=== PATIENT | female | born 1925 | race Caucasian/White ===

== ENCOUNTER 2016-03-31 12:42 | Inpatient (IN) | payer OTHER, MEDICARE ==
[~2016-03-31] VITALS: Ht 165.1 cm; Wt 76.4 kg
[~2016-03-31 12:42] MED LIST: AMARYL2 MG PO; ARICEPT5 MG PO; ASPIR 8181 MG PO; COZAAR 50MG TAB50 MG PO; DICLOFENAC SOD75 MG PO; JANUVIA 50MG50 MG PO; KEFLEX 250MG C250 MG PO; LOVASTATIN40 MG PO; MACRODANTIN 50M50 MG PO; MASON NATURAL2000 IU PO; METFORMIN500 MG PO; TYLENOL325 MG PO
[2016-03-31] MEDS ORDERED: LOSARTAN POTASS50 M1 PO (13:39)
[2016-03-31] MEDS ORDERED: JANUVIA50 M1 PO (13:39)
[2016-03-31] MEDS ORDERED: LOVASTATIN10 M1 PO (13:39)
[2016-03-31] MEDS ORDERED: METFORMIN HCL500 M3 PO (13:40)
[2016-03-31] MEDS ORDERED: DICLOFENAC SODI75 M2 PO (13:40)
[2016-03-31] MEDS ORDERED: GLIMEPIRIDE4 M1 PO (13:40)
[2016-03-31] MEDS ORDERED: TYLENOL EXTRA500 M2 PO (13:41)
[2016-03-31] MEDS ORDERED: ASPIRIN EC81 M1 PO (13:41)
[2016-03-31] MEDS ORDERED: VITAMIN D1000 UNIT PO (13:42)
--- NOTE | 2016-03-31 14:02 | ED AMS/SEIZURE/WEAK/DIZZY ---
History of Present Illness General Chief Complaint: Altered Mental Status Stated Complaint: BIBA AMS Source: patient, family Exam Limitations: clinical condition Allergies Coded Allergies: Penicillins (UNKNOWN PER PT DAUGHTER USUALLY SWELLS AND GETS HIVES TO MED ) Sulfa (Sulfonamide Antibiotics) (HIVES 03/31/16) atorvastatin (From LIPITOR) (UNKNOWN PER PT DAUGHTER 03/31/16) erythromycin base (HIVES, SWELLING 03/31/16) lisinopril (UNKNOWN PER PT DAUGHTER REPORTS PT ALWAYS SWELLS AND GET HIV ) morphine (VOMITING 03/31/16) Reconcile Medications Acetaminophen (Tylenol Extra Strength) 500 MG TABLET 1 TAB PO BID PAIN ( Reported) Aspirin (Ecotrin*) 81 MG TABLET.DR 1 TAB PO QAM HEART/BLOOD (Reported) Cholecalciferol (Vitamin D3) (Vitamin D) (Unknown Strength) TABLET (Unknown Dose) PO QAM SUPPLEMENT (Reported) Diclofenac Sodium 75 MG TABLET.DR 1 TAB PO BID PAIN/INFLAMMATION (Reported) Glimepiride 4 MG TABLET 1 TAB PO QAM DM (Reported) Losartan Potassium 50 MG TABLET 1 TAB PO QAM BP (Reported) Lovastatin 10 MG TABLET 1 TAB PO QPM CHOLESTEROL (Reported) Metformin HCl 500 MG TABLET 1 TAB PO BID DM (Reported) Sitagliptin Phosphate (Januvia) 50 MG TABLET 1 TAB PO QAM DM (Reported) Triage Note: 89 YEAR OLD FEMALE BIBA FROM HOME. PER FAMILY PT HAS INCREASE AMS OVER THE WEEKEND. FAMILY SUSPECTS UTI BUT HAS NOT BEEN ABLE TO OBTAIN A URINE SAMPLE DUE TO URINARY INCONTINENCE. FAMILY REPORTS HISTORY OF DIABETES AND DEMENTIA. PT ARRIVES TO ED ALERT AND RESPONSIVE TO VERBAL STIMULI. DENIES PAIN AT THIS TIME. Triage Nurses Notes Reviewed? yes HPI: This patient is an 89-year-old female with past medical history including aortic stenosis, hypertension, diabetes, dementia, and osteoarthritis who presented to the emergency department today brought in by ambulance accompanied by her daughter for evaluation of altered mental status. The patient's daughter reported that since Wednesday she has been acting, "off." She reported that the patient generally walks around with a walker, but has been, "limp," and has not been walking around. She has not been eating or drinking normally. He also reported that on Wednesday she did have some diarrhea with no blood in the stool that they noticed. They did report that this patient does get recurrent urinary tract infections with no signs or symptoms. They reported that her breathing seems to be heavier. The patient has not been complaining of any pain. When asked if she is having any pain, the patient says no. She is a poor historian at this time due to her dementia and current clinical state. (FLAVIO GUADARRAMA,ROBIN) Vital Signs & Intake/Output Vital Signs & Intake/Output Vital Signs Date Time Temp Pulse Resp B/P Pulse O2 O2 Flow FiO2 Ox Delivery Rate 04/01 1117 22 94 Room Air 04/01 1117 20 96 Nasal 2.0L Cannula 04/01 1111 Nasal 2.0L Cannula 04/01 0800 94 Nasal 2.0L Cannula 04/01 0800 98.2 75 20 124/58 98 Nasal 2.0L Cannula 04/01 0005 97.6 73 18 130/60 96 Nasal 2.0L Cannula 04/01 0000 Nasal 2.0L Cannula 03/31 2212 96 Nasal 2.0L Cannula 03/31 2150 97.1 81 18 130/68 96 Nasal 2.0L Cannula 03/31 2020 97.2 88 18 122/60 98 Nasal 2.0L Cannula 03/31 1735 96.5 85 16 118/58 98 Nasal 2.0L Cannula 03/31 1546 98.4 90 18 127/60 95 Nasal 2.0L Cannula ED Intake and Output 04/01 0000 03/31 1200 Intake Total 2000 Output Total 20 Balance 1980 Intake, IV 2000 Intake, Oral 0 Output, Urine 20 Patient 190 lb Weight Past History Travel History Traveled to [place] past 21 day No Medical History Any Pertinent Medical History? see below for history Neurological: dementia Cardiovascular: aortic stenosis, hypertension Musculoskeletal: osteoarthritis Endocrine: diabetes Surgical History Surgical History: non-contributory Psychosocial History What is your primary language Bulgarian Tobacco Use: Never used Family History Family History, If Any: Relation not specified for: No pertinent family history Hx Contributory? No (ROBIN MUNIZ PA-C) Review of Systems Review of Systems Constitutional: Reports: see HPI. EENTM: Reports: no symptoms. Respiratory: Reports: see HPI. Cardiovascular: Reports: no symptoms. GI: Reports: see HPI. Genitourinary: Reports: no symptoms. Musculoskeletal: Denies: no symptoms, see HPI, back pain, gout, joint pain, joint swelling, muscle pain, muscle stiffness, neck pain. Skin: Reports: no symptoms. Neurological/Psychological: Reports: no symptoms. (FLAVIO GUADARRAMA,ROBIN) Physical Exam Physical Exam General Appearance: well developed/nourished, no apparent distress, alert, awake Comments: Well-developed well-nourished person in no acute distress HEENT: head normocephalic, dry mucous membranes PERRLA bilaterally Nose is atraumatic. Pharynx normal. No swelling or edema. Neck: Supple, no lymphadenopathy Back: Normal inspection Cardiovascular: Regular rate and rhythm with no murmurs, rubs, or gallops Respiratory: No respiratory distress. Breath sounds clear to auscultation bilaterally with no wheezes, rales, rhonchi Abdomen: Soft and nondistended. Tenderness to palpation diffusely across the abdomen. No rebound or guarding. No masses or organomegaly appreciated. Hyperactive bowel sounds Extremity: No edema, normal and equal pulses. Neuro: Alert oriented to person, cranial nerves II through XII grossly intact. No facial droop. No aphasia Skin: No appreciable rash on exposed skin, skin is warm and dry. Psych: Mood and affect is normal Core Measures ACS in differential dx? Yes CVA/TIA Diagnosis: No Severe Sepsis Present: No Septic Shock Present: No (FLAVIO GUADARRAMA,ROBIN) Progress Differential Diagnosis: arrythmia, anemia, benign positional vertigo, CVA/stroke , dehydration, encephalitis, electrolyte imbalance, GI bleed, hypoglycemia, intracranial Hem., intracranial mass/tumor, pneumonia, sepsis, seizure disorder, subarachnoid Hem., UTI/pyelo, COLITIS, MESENTERIC ISCHEMIA, copd, chf, pe, acs Diagnostic Imaging: Viewed by Me: Radiology Read, CT Scan. Discussed w/RAD: Radiology Read, CT Scan. Radiology Impression: PATIENT: EDITH REILLY PRESENT AGE: 89 PATIENT ACCOUNT NO: [id number] : [birth year] LOCATION: [facility] ORDERING PHYSICIAN: ROBIN MUNIZ PA-C SERVICE DATE: 03/31/16 EXAM TYPE: CAT - CT ABD & PELVIS W/O IV CONTRAS EXAMINATION: CT ABDOMEN AND PELVIS WITHOUT CONTRAST CLINICAL INFORMATION: Abdominal pain, altered mental status COMPARISON: None TECHNIQUE: Multidetector volumetric imaging was performed from the superior aspect of the liver through the pubic symphysis. Sagittal and coronal reformatted images were obtained on the technologist's workstation. Noncontrast examination was performed due to patient's renal function DLP: 674.91 mGy-cm FINDINGS: LUNG BASES: Mild dependent bibasilar opacities favor atelectasis. LIVER, GALLBLADDER, AND BILIARY TREE: The liver is normal in size, shape, and attenuation. No focal hepatic lesion or biliary ductal dilatation is present. The gallbladder is unremarkable with no evidence of radiopaque gallstones, gallbladder wall thickening, or obvious pericholecystic inflammatory changes. PANCREAS: Unremarkable. SPLEEN: Unremarkable. ADRENAL GLANDS: Unremarkable. KIDNEYS AND URETERS: Assessment of the renal parenchyma is limited in the absence of intravenous contrast. However, there is a segment of the lateral left renal cortex which appears thickened, as seen on coronal image 48, and for which an underlying mass cannot be excluded. There is suggestion of a focal low-attenuation density in this area (axial image 31/91), also not adequately assessed in the absence of intravenous contrast. No hydronephrosis or obstructing calculi bilaterally. BLADDER: Minimally distended and grossly unremarkable. GASTROINTESTINAL TRACT: There is mild sigmoid colon diverticulosis without suspicious findings for diverticulitis. No abnormal bowel wall thickening is seen. No evidence of bowel obstruction. No free fluid or free air is seen. ABDOMINAL WALL: No significant hernia is appreciated. LYMPH NODES: Scattered mesenteric and retroperitoneal subcentimeter lymph nodes are present, without significant enlargement by size criteria. VASCULAR: There is atherosclerotic calcification along the aorta and iliac arteries. PELVIC VISCERA : Patient appears status post hysterectomy. OSSEOUS STRUCTURES: Degenerative changes are noted in the spine. IMPRESSION: 1. Mild colonic diverticulosis without evidence for diverticulitis. No findings to suggest colitis. No evidence of bowel obstruction. 2. Segment of thickened left renal cortex, suboptimally evaluated in the absence of intravenous contrast. An underlying mass in this region cannot be excluded. If patient's renal function improves, a contrast- enhanced CT would be helpful to further evaluate this finding. DICTATED BY: DINORAH ORTIZ MD DATE/TIME DICTATED:03/31/161638 WALLPAPER HANGER:SALO DATE/TIME TRANSCRIBED:03/31/161638 CONFIDENTIAL, DO NOT COPY WITHOUT APPROPRIATE AUTHORIZATION. <Electronically signed in Other Vendor System> SIGNED BY: DINORAH ORTIZ MD 03/31/16 0638 CXR Impression: PATIENT: EDITH REILLY PRESENT AGE: 89 PATIENT ACCOUNT NO: [id number] : [birth year] LOCATION: [facility] ORDERING PHYSICIAN: ROBIN MUNIZ PA-C SERVICE DATE: 03/31/16-1316 EXAM TYPE: RAD - XRY-PORTABLE CHEST XRAY EXAMINATION: XR PORTABLE CHEST CLINICAL INFORMATION: Altered mental status. COMPARISON: Chest x-ray 03/28/2008. TECHNIQUE: Portable AP view of the chest was obtained. FINDINGS: The lungs are hypoinflated but otherwise clear without focal airspace consolidation. No pleural effusions or pneumothoraces are identified. Cardiomediastinal contours are stable. Soft tissues are unremarkable. No acute osseous abnormality is identified. There are [id number] degenerative changes involving the bilateral glenohumeral joints. An anchor screw is visualized along the right humeral head. IMPRESSION: No acute pulmonary process. DICTATED BY: JUAN PABLO OLIVAREZ MD DATE/TIME DICTATED:03/31/161407 WALLPAPER HANGER:SALO DATE/TIME TRANSCRIBED:03/31/161407 CONFIDENTIAL, DO NOT COPY WITHOUT APPROPRIATE AUTHORIZATION. <Electronically signed in Other Vendor System> SIGNED BY: JUAN PABLO OLIVAREZ MD 03/31/161417 Initial ED EK BPM, SINUS TACHYCARDIA Comments: 03/31/2016 3:16:59 PM: As of the patient's bedside for reevaluation. She is currently resting comfortably. Updated the patient's daughter on the results. UTI based on urinalysis. White blood cell count 28.8. Will also obtain a CT scan of the abdomen and pelvis. (FLAVIO GUADARRAMA,ROBIN) Plan of Care: Orders Procedure Date/time Status MAGNESIUM 04/02 06 Active CBC WITHOUT DIFFERENTIAL 04/02 06 Active BASIC ELECTROLYTES PLUS BUN&CR 04/02 06 Active Regular Diet 04/01 B Active RT: Evaluation 04/01 1111 Active Skin/Pressure Ulcer Assess (Sk 04/01 0730 Active Pain Treatment and Response 04/01 07 Active CBC WITHOUT DIFFERENTIAL 04/01 07 Complete BASIC ELECTROLYTES PLUS BUN&CR 04/01 0600 Complete Change service to 04/01 0538 Active TRC EVALUATION (GEN) 04/01 UNK Complete THERAPIST ORDERS 04/01 UNK Complete OXYGEN SETUP (GEN) 04/01 UNK Complete NUTRITIONAL CONSULT 04/01 UNK Active Turn and Reposition 03/31 2223 Active Skin Integrity Protocol 03/31 2223 Active Straight Cath 03/31 2221 Complete MISSING MEDICATION FORM 03/31 2209 Active Teach/Educate 03/31 2149 Active Nutritional Intake, Monitor 03/31 2149 Active Isolation 03/31 2149 Active Patient Care Conference 03/31 2149 Active Pathway - chart 03/31 1912 Active Pathway - chart 03/31 1911 Active House Staff 03/31 191 Active Patient Data 03/31 191 Active Code Status 03/31 191 Active Patient Data 03/31 1728 Active Saline Lock 03/31 1714 Active Admit to inpatient 03/31 1714 Active Vital Signs 03/31 171 Active Activity/Ambulation 03/31 171 Active Code Status 03/31 1714 Complete Weight 03/31 1647 Active Intake & Output 03/31 1428 Active TOTAL IRON BINDING CAPACITY 03/31 1407 Complete FERRITIN 03/31 1407 Complete SERUM IRON 03/31 1407 Complete Lab Add-on Test 03/31 UNK Active VTE Mechanical Prophylaxis 03/31 UNK Active FingerStick- Glucose 03/31 UNK Active Current Medications Sig/Bianca Start time Last Medication Dose Stop Time Status Admin Ceftazidime 1,000 MG Q12 04/01 1459 UNVr (Fortaz) Non-Formulary 0 SEE ADMIN CRITERIA 03/31 2030 CAN Medication (NON FORMULARY) Ceftriaxone Sodium 1,000 MG ONCE ONE 03/31 1530 CAN (Rocephin) 03/31 1531 Laboratory Tests 04/01/16 0730: CBC w Diff NO MAN DIFF REQ, RBC 3.70 L, MCV 78.5 L, MCH 25.5 L, RDW 21.0 H, MPV 8.5, Gran % 83.5 H, Lymphocytes % 10.2 L, Monocytes % 5.8, Eosinophils % 0.5, Basophils % 0 L, Absolute Granulocytes 18.0 H, Absolute Lymphocytes 2.2, Absolute Monocytes 1.3 H, Absolute Eosinophils 0.1, Absolute Basophils 0, PUBS MCHC 32.4 L 04/01/16 0700: Anion Gap 11, Estimated GFR 27 L, BUN/Creatinine Ratio 30.6 H Microbiology 03/31 1540 BLOOD: Blood Culture - RES Initial ED EKG: normal axis, normal intervals, normal p-waves, normal QRS complex, normal sinus rhythm (NORBERTO BURRIS MD) Departure Departure Condition: Stable Clinical Impression Primary Impression: UTI (urinary tract infection) Qualifiers: Urinary tract infection type: site unspecified Hematuria presence: without hematuria Qualified Code: N39.0 - Urinary tract infection, site not specified Secondary Impressions: Hypoxia Leukocytosis Qualifiers: Leukocytosis type: unspecified Qualified Code: D72.829 - Elevated white blood cell count, unspecified Referrals: ALEKSANDAR DAUGHERTY,JONATHAN Jara (PCP/Family) Departure Forms: Customer Survey General Discharge Information Admission Note Spoke With: HEIDI MERCER MD Documentation of Exam: Documentation of any treatments & extenuating circumstances including Concerns Regarding Discharge (functional status, medication knowledge or non-compliance, living conditions, etc.) that warrant an admission rather than observation: [ This patient is an 89 year old female with a past medical history including diabetes and recurrent UTIs who presented for evaluation of altered mental status. UTI based on urinalysis. WBC count 28. Hypoxic on room air at 88%. Should be admitted for IV antibiotics, trend labs, oxygen therapy, possible CT scan with IV contrast, possible pulmonology consult, PT evaluation, and close monitoring. Premature discharge could prove medically harmful.] (ROBIN MUNIZ PA-C) Departure Disposition: HOME OR SELF CARE PA/ELECTRIC TRUCK CRANE OPERATOR Co-Sign Statement Statement: ED Attending supervision documentation- x I saw and evaluated the patient. I have also reviewed all the pertinent lab results and diagnostic results. I agree with the findings and the plan of care as documented in the PA's/ELECTRIC TRUCK CRANE OPERATOR's documentation. [] I have reviewed the ED Record and agree with the PA's/ELECTRIC TRUCK CRANE OPERATOR's documentation. [] Additions or exceptions (if any) to the PAs/ELECTRIC TRUCK CRANE OPERATOR's note and plan are summarized below: [] (NORBERTO BURRIS MD)
[2016-03-31 14:17] LABS: ABSOLUTE BASOPHIL COUNT 0 /CUMM (0.0-0.2); ABSOLUTE EOSINOPHIL COUNT 0 /CUMM (0.0-0.7); ABSOLUTE GRANULOCYTE CT 24.5 /CUMM (1.4-6.5); ABSOLUTE LYMPH COUNT 2.2 /CUMM (1.2-3.4); ABSOLUTE MONOCYTE COUNT 1.4 /CUMM (0.10-0.60); BASOPHIL % 0 % (0.0-2.0); EOSINOPHIL % 0 % (0-5); HEMATOCRIT 31.8 % (37-47); MEAN CORPUSCULAR HGB 25.2 PG (27.0-31.0); MEAN CORPUSCULAR HGB CONC 32.5 G/DL (33.0-37.0); MEAN CORPUSCULAR VOLUME 77.4 FL (81.0-99.0); MEAN PLATELET VOLUME 8.1 FL (7.4-10.4); PLATELET COUNT 318 /CUMM (130-400); RBC DISTRIBUTION WIDTH 20.5 % (11.5-14.5); RED BLOOD CELL CT 4.11 /CUMM (4.20-5.40); WHITE BLOOD CELL COUNT 28.2 /CUMM (4.8-10.8)
--- NOTE | 2016-03-31 14:18 | RADIOLOGY REPORT ---
EXAMINATION: XR PORTABLE CHEST CLINICAL INFORMATION: Altered mental status. COMPARISON: Chest x-ray 03/28/2008. TECHNIQUE: Portable AP view of the chest was obtained. FINDINGS: The lungs are hypoinflated but otherwise clear without focal airspace consolidation. No pleural effusions or pneumothoraces are identified. Cardiomediastinal contours are stable. Soft tissues are unremarkable. No acute osseous abnormality is identified. There are [id number] degenerative changes involving the bilateral glenohumeral joints. An anchor screw is visualized along the right humeral head. IMPRESSION: No acute pulmonary process.
--- NOTE | 2016-03-31 16:54 | CT SCAN REPORT ---
EXAMINATION: CT ABDOMEN AND PELVIS WITHOUT CONTRAST CLINICAL INFORMATION: Abdominal pain, altered mental status COMPARISON: None TECHNIQUE: Multidetector volumetric imaging was performed from the superior aspect of the liver through the pubic symphysis. Sagittal and coronal reformatted images were obtained on the technologist's workstation. Noncontrast examination was performed due to patient's renal function DLP: 674.91 mGy-cm FINDINGS: LUNG BASES: Mild dependent bibasilar opacities favor atelectasis. LIVER, GALLBLADDER, AND BILIARY TREE: The liver is normal in size, shape, and attenuation. No focal hepatic lesion or biliary ductal dilatation is present. The gallbladder is unremarkable with no evidence of radiopaque gallstones, gallbladder wall thickening, or obvious pericholecystic inflammatory changes. PANCREAS: Unremarkable. SPLEEN: Unremarkable. ADRENAL GLANDS: Unremarkable. KIDNEYS AND URETERS: Assessment of the renal parenchyma is limited in the absence of intravenous contrast. However, there is a segment of the lateral left renal cortex which appears thickened, as seen on coronal image 48, and for which an underlying mass cannot be excluded. There is suggestion of a focal low-attenuation density in this area (axial image 31/91), also not adequately assessed in the absence of intravenous contrast. No hydronephrosis or obstructing calculi bilaterally. BLADDER: Minimally distended and grossly unremarkable. GASTROINTESTINAL TRACT: There is mild sigmoid colon diverticulosis without suspicious findings for diverticulitis. No abnormal bowel wall thickening is seen. No evidence of bowel obstruction. No free fluid or free air is seen. ABDOMINAL WALL: No significant hernia is appreciated. LYMPH NODES: Scattered mesenteric and retroperitoneal subcentimeter lymph nodes are present, without significant enlargement by size criteria. VASCULAR: There is atherosclerotic calcification along the aorta and iliac arteries. PELVIC VISCERA: Patient appears status post hysterectomy. OSSEOUS STRUCTURES: Degenerative changes are noted in the spine. IMPRESSION: 1. Mild colonic diverticulosis without evidence for diverticulitis. No findings to suggest colitis. No evidence of bowel obstruction. 2. Segment of thickened left renal cortex, suboptimally evaluated in the absence of intravenous contrast. An underlying mass in this region cannot be excluded. If patient's renal function improves, a contrast-enhanced CT would be helpful to further evaluate this finding.
--- NOTE | 2016-03-31 17:29 | History & Physical ---
See Addendum ASHLYN DAUGHERTY,JOSEPHINE 03/31/16 9175: General Information and HPI MD Statement: I have seen and personally examined EDITH CRANE and documented this H& P. The patient is a 89 year old F who presented with a patient stated chief complaint of [altered mental status]. Source of Information: family Exam Limitations: dementia History of Present Illness: Patient is an 89-year-old lady with PMH of dementia, recurrent UTIs, aortic stenosis, DM, HTN, HLD who is BIBA due to worsening weakness and altered mental status for about 4-5 days. According to her daughter patient has becoming gradually weaker and less communicative since about 2-3 weeks ago, she has also been incontinent with the urine. Patient had similar symptoms in the past when she had a UTI, except that she would usually complain of burning which she has not been complaining of this time. She has overall having urinary incontinence more frequently since her last episode of UTI in January 2016, for which she received a 7 day course of ciprofloxacin. Patient sees Dr. Huertas (her PCP), and last saw him in December 2015. Patient has been receiving treatment with ciprofloxacin for the recurrent UTIs. Family reports no fever or chills. No abdominal pain or coughing. Yesterday she also had an episode of bowel incontinence and passed out a large volume of brown stool. Patient's older daughter is a nurse and she confirmed that the stool did not appear dark or bloody. Denies any abdominal distention, reports one episode of vomiting undigested food 2 days ago. Family also report that her breathing appears more labored recently especially when she becomes anxious. Deny poor appetite but report overall weight loss during the past 1.5 years. She has a 24 hour aid at home and she is normally walking with a walker and able to feed herself; however during the past 4-5 days she has been too week to ambulate and has been more dependent. Family also have noticed a swelling on the right leg sine yesterday, patient has not reported any pain on the leg except for the chronic pain on the knees bilaterally (left>right). Also reported elevated BS to 260s in the past few days, her normal BS being at 120s. Of note, about three weeks ago patient had her left toe nail removed as it was falling off, family denies any discharge, irritation in the area or any pain reported by the patient. 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 ) morphine (VOMITING 03/31/16) Home Med list Acetaminophen (Tylenol Extra Strength) 500 MG TABLET 1 TAB PO BID PAIN ( Reported) Aspirin (Ecotrin*) 81 MG TABLET.DR 1 TAB PO QAM HEART/BLOOD (Reported) Cholecalciferol (Vitamin D3) (Vitamin D) (Unknown Strength) TABLET (Unknown Dose) PO QAM SUPPLEMENT (Reported) Diclofenac Sodium 75 MG TABLET.DR 1 TAB PO BID PAIN/INFLAMMATION (Reported) Glimepiride 4 MG TABLET 1 TAB PO QAM DM (Reported) Losartan Potassium 50 MG TABLET 1 TAB PO QAM BP (Reported) Lovastatin 10 MG TABLET 1 TAB PO QPM CHOLESTEROL (Reported) Metformin HCl 500 MG TABLET 1 TAB PO BID DM (Reported) Sitagliptin Phosphate (Januvia) 50 MG TABLET 1 TAB PO QAM DM (Reported) Past History Travel History Traveled to [place] past 21 day No Medical History Neurological: dementia Cardiovascular: aortic stenosis, hypertension Renal: recurrent UTIs Musculoskeletal: osteoarthritis Endocrine: diabetes Surgical History Surgical History: non-contributory Past Family/Social History Family History Relations & Conditions if any Relation not specified for: No pertinent family history Functional Ability ADLs Independent: eating. Needs Assist: dressing, toileting, bathing. Ambulation: walker IADLs Needs Assist: shopping, housework, finances, food prep, telephone, transportation, medication admin. Review of Systems Review of Systems Constitutional: Reports: malaise, weakness. Denies: chills, fever. EENTM: Reports: no symptoms. Cardiovascular: Denies: chest pain, palpitations, peripheral edema, syncope. Respiratory: Reports: short of breath. Denies: cough, sputum production, stridor, wheezing. GI: Reports: vomiting. Denies: abdominal pain, bloating, diarrhea, melena, nausea, bloody stool, changes in stool. Genitourinary: Reports: urgency. Denies: discharge, dysuria, frequency, pain. Musculoskeletal: Reports: no symptoms. Skin: Reports: no symptoms. Neurological/Psychological: Reports: depressed, weakness (generalized). Hematologic/Endocrine: Reports: no symptoms. Exam & Diagnostic Data Last 24 Hrs of Vital Signs/I&O Vital Signs Date Time Temp Pulse Resp B/P Pulse O2 O2 Flow FiO2 Ox Delivery Rate 03/31 2020 97.2 88 18 122/60 98 Nasal 2.0L Cannula 03/31 1735 96.5 85 16 118/58 98 Nasal 2.0L Cannula 03/31 1546 98.4 90 18 127/60 95 Nasal 2.0L Cannula 03/31 1428 100.0 92 18 132/60 88 Room Air Room Air 03/31 1321 95 Nasal 2.0L Cannula 03/31 1313 100.1 97 18 156/58 97 Nasal 2.0L Cannula Intake & Output 03/31 1600 03/31 0800 03/31 0000 Intake Total Output Total 20 Balance -20 Output, Urine 20 Physical Exam General Appearance Alert, Cooperative, No Acute Distress, not oriented to time and place but oriented to person. Skin No Rashes, No Breakdown, No Significant Lesion, left big toenail is removed , there is mild erythema on the bed of the nail but no tenderness or discharge noted. HEENT Atraumatic, EOMI, Mucous Membr. moist/pink Neck Supple, No JVD Lymphatic no cervical or submandibular LAP Cardiovascular Regular Rate, Normal S1, Normal S2, 3/6 systolic murmur at heard best at the aortic area Lungs Clear to Auscultation, Normal Air Movement Abdomen Soft, increased bowel sounds, mild suprapubuc tenderness, mild RUQ tenderness, no CVA tenderness bilaterally Neurological Strength at 5/5 X4 Ext, Normal Tone, Sensation Intact, Cranial Nerves 3-12 NL Extremities Normal Pulses, left shoulder decreased ROM (frozen shoulder), forces intact 5/5, there is swelling and crepitaiton on the knees on both sides (right >left). there is swelling of the right lower extremity compared to the left, 1+ pitting pedal edema on both sides Vascular Normal Pulses, Pulses Symmetrical Last 24 Hrs of Labs/Rehan: Laboratory Tests 03/31/16 1423: Urinalysis LIGHT H, Urine Color YEL, Urine Clarity HAZY H, Urine pH 5.5, Ur Specific [place] 1.025, Urine Protein 100 H, Urine Ketones NEG, Urine Nitrite NEG, Urine Bilirubin NEG, Urine Urobilinogen 0.2, Ur Leukocyte Esterase LARGE H , Ur Microscopic SEDIMENT EXAMINED, Urine RBC 10-15 H, Urine WBC PACKD H, Ur Epithelial Cells MANY H, Urine Hemoglobin LARGE H, Urine Glucose NEG 03/31/16 1407: Anion Gap 14, Estimated GFR 30 L, BUN/Creatinine Ratio 30.0 H, Glucose 194 H, Lactic Acid 1.3, Calcium 9.3, Total Bilirubin 0.7, AST 15, ALT 29, Alkaline Phosphatase 90, Troponin I 0.02, Total Protein 6.6, Albumin 3.2 L, Globulin 3.4 , Albumin/Globulin Ratio 0.9 L, CBC w Diff MAN DIFF ORDERED, RBC 4.11 L, MCV 77.4 L, MCH 25.2 L, RDW 20.5 H, MPV 8.1, Gran % 87.0 H, Lymphocytes % 7.9 L , Monocytes % 5.1, Eosinophils % 0, Basophils % 0 L, Absolute Granulocytes 24.5 H, Segmented Neutrophils 85 H, Band Neutrophils 8 H, Absolute Lymphocytes 2.2 , Lymphocytes 6 L, Monocytes 1 L, Absolute Monocytes 1.4 H, Absolute Eosinophils 0, Absolute Basophils 0, Platelet Estimate ADEQUATE, Hypochromic- Microcytic 1+, Anisocytosis 1+, Microcytic Cells 1+, PUBS MCHC 32.5 L Microbiology 03/31 1540 BLOOD: Blood Culture - RECD 03/31 1521 BLOOD: Blood Culture - RECD 03/31 1423 URINE ROUT: Urine Culture - RECD Assessment/Plan Assessment: Patient is an 89-year-old lady with PMH of dementia, recurrent UTIs, aortic stenosis, DM, HTN, HLD who is BIBA due to worsening weakness and altered mental status for about 4-5 days. In the ED patient was found to have T 0f 100.0, NC:92 , desaturating to 88% in RA (95% on 2L). She is alert and awake not oriented, does not appear in respiratory distress or febrile. UA suggests UTI, CXR appear normal. she received IV hydration and a dose of gentamicin in the ED. Patient is admitted to the [facility] floor with sepsis of possible urologic origin. Problem list and plan: UTI and altered mental status Patient completes SIRS criteria (low grade fever and leukocytosis, mild tachycardia). Patient has a history of recurrent UTIs, last time was treated outpatient with a 7 day course of Ciprofloxacin in . Patient was also admitted to [facility] in June 2013 for UTI and cultures grew pseudomonas a., proteus m., and enterococcus. UA on this admission shows high LE, large Hb, packed WBCs, high RBCs. T max 100.1 * sent UC and BC * IV fluids, NS 75 cc/hour * IV abx: considering penicillin allergy, we are giving ceftazidime and vancomycin to cover possible pseudomonas, proteus and enterococcus. Gentamicin DC'd due to JULIETA. Hypoxia on admission saturation was found to be 88 % in RA in the ED upon arrival, came up >92% on 2L. family denied coughing or sputum production. Lung exam is clear. * TRC nebs * taper down O2 supplementation as tolerated JULIETA according to the family Cr goes up above 2.0 at times especially with UTIs. today 1.6, slightly elevated from baseline. should be possibly due to infection and dehydration. * IV hydration * repeat bep in am Right leg swelling rule out DVT, no change in color, pulses symmetric * doppler US of the right lower leg Diabetes mellitus type 2 hold oral medications * accuchecks TID AC * insulin NSS HTN * continue losartan 50 mg daily Microcytic anemia possibly due to iron deficiency * iron studies * CBC in AM Episode of vomiting and diarrhea * stool exam and culture * CT abdomen and pelvis Chronic knee osteoarthritis and pain * continue pain medications * Tylenol for mild pain, diclofenac for mod-severe pain Diet * diabetic DVT px * SC heparin DNR/DNI As Ranked By This Provider Problem List: 1. Leukocytosis Qualifiers Leukocytosis type: unspecified Qualified Code: D72.829 - Elevated white blood cell count, unspecified 2. Hypertension 3. Diabetes 4. JULIETA (acute kidney injury) 5. Altered mental state 6. UTI (urinary tract infection) Qualifiers Urinary tract infection type: site unspecified Hematuria presence: without hematuria Qualified Code: N39.0 - Urinary tract infection, site not specified Core Measures/Miscellaneous Acute Coronary Syndrome ACS Diagnosis: No Cerebrovascular Accident CVA/TIA Diagnosis: No Congestive Heart Failure CHF Diagnosis: No Venous Thromboembolism VTE Risk Factors: Acute medical illness, Age > 40, Obesity VTE Prophylaxis Ordered Inpt: [facility] d/t: No contraindications No VTE Pharm Prophylaxis d/t: No contraindications VTE Diagnosis: No VTE Type: NONE VTE Confirmed by (Test): NONE Severe Sepsis Severe Sepsis Present: No Septic Shock Septic Shock Present: No Miscellaneous Documentation Attending Case Discussed With: HEIDI MERCER MD Primary Care Physician: JONATHAN HUERTAS MD Patient sees these Specialists Dr. Huertas Level of Patient Care: General Medicine SERAFIN RICE 03/31/162053: Resident Review Statement Resident Statement: examined this patient, discussed with corporate communications intern, agreed with corporate communications intern, discussed with family, reviewed EMR data (avail), discussed with nursing , reviewed images Other Findings: Ms Crane is an 89-year-old lady with a PMH of HTN, GERD, DM, PVD, HLD, dementia and OA was brought in by family members out of concern for urinary tract infection. She follows up with her PCP (Dr. Huertas) for her history of recurrent UTIs and does have a standing order of ciprofloxacin, last UTI in January 2016. Symptoms started this past weekend with noticeable decrease in conversation and ambulation, generalized weakness and confusion. The report 1 episode of nonbloody emesis and diarrhea over the weekend but denies any noticeable fevers or chills. This morning she was noted to have increased effort with respiration for which they brought her in to the ED. At her baseline she is independent with feeding but does require 24-hour help with ADLs. The visiting nurse also noted an increase in her blood sugar today. VS on admission: BP 156/58, HR 97, RR 18, SPO2 97% on 2L, T1 100.1 PE: Alert, no acute distress, baseline hearing impairment. No evidence of focal neurologic deficits. RRR, normal S1/S2, rate 3/6 systolic murmur present in all cardiac vo. Diminished breath sounds in the basilar regions bilaterally. Hyperactive bowel sounds, mild discomfort elicited with palpation of the suprapubic region. Right lower extremity slightly larger with no evidence of hematoma or bruising. Pertinent labs: WBC 28.2, 8% bands, H&H 10.4/31.8, platelets 318, BUN/CR 48/1.6, glucose 194 Lactic acid: 1.3 UA: Large leukocyte esterase, packed WBCs CXR: No acute pelvic process Venous Doppler right lower extremity: Normal triplex scan without evidence of DVT involving right lower extremity CT abdomen and pelvis: Mild diverticulosis, no diverticulitis, no findings to suggest colitis. Segment of thickened left renal cortex, suboptimally evaluated in the absence of IV contrast. An underlying mass in this region cannot be excluded Problem list: 1. UTI 2. SIRS criteria/pyelonephritis 3. Acute kidney injury 4. Anemia 5. Diabetes 6. Hypertension Plan: * Admit to general medicine * Previous urine cultures: Enterococcus, Pseudomonas and Proteus. Patient does have a history of penicillin allergy. She did receive 1 dose of gentamicin in the ER. In the setting of acute kidney injury, we'll start her on 1 dose of vancomycin and ceftaz. Patient has received cephalosporins in the past with no reaction. Follow-up urine and blood cultures * SIRS criteria: WBC 20.2, HR 77, T 100.4. Follow-up cultures * Acute kidney injury: Baseline creatinine 1.1 proximally 3 years ago. We'll continue with moderate hydration with NS at 75 mL an hour. Repeat BEP in the morning. Monitor for chronic congestion * Anemia: We'll follow-up iron studies in the a.m. and if low start her on ferrous sulfate supplementation * Diabetes: Holding home doses of metformin, Januvia and Glimepiride. We'll start her on low-dose sliding scale, Accu-Cheks * Hypertension: Continue losartan 50 mg daily * Diet: Regular * DVT prophylaxis: Heparin 5000 units subcutaneous * Status: DNR/DNI CT abd/pelvis findings: will follow up radiology in the AM
--- NOTE | 2016-03-31 20:03 | ULTRASOUND REPORT ---
EXAMINATION: US TRIPLEX LOWER EXTREMITY, RIGHT CLINICAL INFORMATION: Decreased mobility recently. COMPARISON: None available. TECHNIQUE: Color-flow triplex imaging with spectral analysis and compression Doppler were performed on the right lower extremity. FINDINGS: Respiratory variation, normal compression and augmented flow are noted throughout the lower extremity. The visualized common femoral vein, superficial femoral vein, profunda femoral vein, popliteal vein and midcalf peroneal and posterior tibial venous segments show no evidence of deep venous thrombosis. There is no Lucas's cyst. IMPRESSION: Normal triplex scan without evidence of deep venous thrombosis involving the right lower extremity.
--- NOTE | 2016-03-31 21:08 | Admission Certification ---
Admission Certification Certification Statement - As attending physician, I certify that at the time of - admission, based on clinical presentation, severity of - symptoms, need for further diagnostic testing and - therapeutic interventions, and risk of adverse outcomes - without in-hospital treatment, in my clinical assessment, - this patient requires an acute hospital stay for a minimum - of two nights or longer. I have also considered psychsocial - factors such as support system, advanced age, financial - issues, cognitive issues, and failed out-patient treatments, - past re-admission history, safety of patient, and lack of - compliance as applicable. Specific rationale supporting this admission is: Sepsis secondary to UTI with hypoxia and confusion
--- NOTE | 2016-03-31 21:08 | PN- Att Addend ---
Attending Addendum Attending Brief Note 89F PMH dementia, HTN, T2DM, aortic stenosis, recurrent UTI presenting with altered mental status, poor oral intake in the setting of UTI. Patient has been interacting/talking less with family of late and eating less. Presentations similar to prior UTIs. Not short of breath but hypoxic to 88% on room air. Appears ill and weak, but not toxic. Febrile 100.1, normal BP, WBC 28k, creatinine 1.6 (baseline 1.1). Has a history of UTI with Enterococcus, Pseudomonas, Proteus. Current Medications Sig/Bianca Start time Last Medication Dose Route Stop Time Status Admin Acetaminophen 1,000 MG Q6P PRN 03/31 1914 DC IV Aspirin Buffered 81 MG QAM 04/01 1000 AC PO Ceftazidime 1,000 MG ONCE ONE 03/31 1914 DC 03/31 IV 03/31 Ceftriaxone Sodium 1,000 MG ONCE ONE 03/31 1530 CAN IV 03/31 153 Cholecalciferol 400 IU DAILY 04/01 1000 AC PO Diclofenac Sodium 75 MG BID 03/31 2199 UNVr PO Gentamicin Sulfate 100 MG ONE ONE 03/31 1615 DC 03/31 Dextrose/Water 100 ML IV 03/31 1644 1718 Heparin Sodium 5,000 UNIT Q8 03/31 2200 AC (Porcine) SC Ibuprofen 600 MG Q6P PRN 03/31 1914 DC PO Insulin Aspart 0 TIDAC 04/01 0800 AC SC Losartan Potassium 50 MG QAM 04/01 1000 UNVr PO Morphine Sulfate 2 MG Q4P PRN 03/31 1914 DC IV Non-Formulary 0 SEE ADMIN CRITERIA 03/31 2030 CAN Medication ANY Sodium Chloride 1,000 ML ONCE ONE 03/31 1930 AC 03/31 IV 04/01 0849 2020 Sodium Chloride 1,000 ML BOLUS ONE 03/31 1530 DC 03/31 IV 03/31 1629 1718 Vancomycin HCl 1,000 MG ONCE ONE 03/31 1914 DC 03/31 Dextrose/Water 250 ML IV 03/31 Laboratory Tests 03/31 03/31 1423 1407 Chemistry Sodium (137 - 145 mmol/L) 142 Potassium (3.5 - 5.1 mmol/L) 4.4 Chloride (98 - 107 mmol/L) 105 Carbon Dioxide (22 - 30 mmol/L) 23 Anion Gap (5 - 16) 14 BUN (7 - 17 mg/dL) 48 H Creatinine (0.5 - 1.0 mg/dL) 1.6 H Estimated GFR (>60 ml/min) 30 L BUN/Creatinine Ratio (7 - 25 %) 30.0 H Glucose (65 - 99 mg/dL) 194 H Lactic Acid (0.7 - 2.1 mmol/L) 1.3 Calcium (8.4 - 10.2 mg/dL) 9.3 Total Bilirubin (0.2 - 1.3 mg/dL) 0.7 AST (14 - 36 U/L) 15 ALT (9 - 52 U/L) 29 Alkaline Phosphatase (<127 U/L) 90 Troponin I (< 0.11 ng/ml) 0.02 Total Protein (6.3 - 8.2 g/dL) 6.6 Albumin (3.5 - 5.0 g/dL) 3.2 L Globulin (1.9 - 4.2 gm/dL) 3.4 Albumin/Globulin Ratio (1.1 - 2.2 %) 0.9 L Hematology CBC w Diff MAN DIFF ORDERED WBC (4.8 - 10.8 /CUMM) 28.2 H RBC (4.20 - 5.40 /CUMM) 4.11 L Hgb (12.0 - 16.0 G/DL) 10.4 L Hct (37 - 47 %) 31.8 L MCV (81.0 - 99.0 FL) 77.4 L MCH (27.0 - 31.0 PG) 25.2 L RDW (11.5 - 14.5 %) 20.5 H Plt Count (130 - 400 /CUMM) 318 MPV (7.4 - 10.4 FL) 8.1 Gran % (42.2 - 75.2 %) 87.0 H Lymphocytes % (20.5 - 51.1 %) 7.9 L Monocytes % (1.7 - 9.3 %) 5.1 Eosinophils % (0 - 5 %) 0 Basophils % (0.0 - 2.0 %) 0 L Absolute Granulocytes (1.4 - 6.5 /CUMM) 24.5 H Segmented Neutrophils (42.2 - 75.2 %) 85 H Band Neutrophils (0.0 - 5.0 %) 8 H Absolute Lymphocytes (1.2 - 3.4 /CUMM) 2.2 Lymphocytes (20.5 - 51.1 %) 6 L Monocytes (1.7 - 9.3 %) 1 L Absolute Monocytes (0.10 - 0.60 /CUMM) 1.4 H Absolute Eosinophils (0.0 - 0.7 /CUMM) 0 Absolute Basophils (0.0 - 0.2 /CUMM) 0 Platelet Estimate (ADEQUATE) ADEQUATE Hypochromic-Microcytic 1+ Anisocytosis 1+ Microcytic Cells 1+ PUBS MCHC (33.0 - 37.0 G/DL) 32.5 L Urines Urinalysis LIGHT H Urine Color (YEL,AMB,STR) YEL Urine Clarity (CLEAR) HAZY H Urine pH (5.0 - 8.0) 5.5 Ur Specific [place] (1.001 - 1.035) 1.025 Urine Protein (NEG,<30 MG/DL) 100 H Urine Ketones (NEG) NEG Urine Nitrite (NEG) NEG Urine Bilirubin (NEG) NEG Urine Urobilinogen (0.1 - 1.0 EU/dl) 0.2 Ur Leukocyte Esterase (NEG) LARGE H Ur Microscopic SEDIMENT EXAMINED Urine RBC (0 - 5 /HPF) 10-15 H Urine WBC (0 - 2 /HPF) PACKD H Ur Epithelial Cells (NONE,FEW) MANY H Urine Hemoglobin (NEG) LARGE H Urine Glucose (N MG/DL) NEG 1. Sepsis secondary to UTI 2. Acute hypoxemic respiratory failure 3. JULIETA 4. Dehydration 5. Metabolic encephalopathy 6. Dementia Plan - Admit to general medicine - Given micro history, will start Vancomycin for Enterococcus (penicillin allergic) and Ceftazidime for Pseudomonas, and de-escelate based on culture results - Follow urine and blood cultures - Nutrition consult - Supplemental oxygen, titrate down as tolerated - IV hydration - Recheck BEP tomorrow - Continue home medications - DVT PPx
[2016-03-31 21:50] VITALS: BP 130/68
[2016-04-01 00:05] VITALS: BP 130/60
--- NOTE | 2016-04-01 07:14 | PN- Housestaff ---
ASHLYN DAUGHERTY,[facility] 04/01/16 0714: Subjective Follow-up For: AMS SIRS with UTI and leukocytosis Subjective: Patient is alert and awake, oriented to person not place and time. She is more communicative compared to yesterday, responds to questions in short answers and follows commands. Patient is not in respiratory distress, not wheezing and not febrile. denies pain. Review of Systems Constitutional: Denies: chills, fever, weakness. EENTM: Reports: no symptoms. Cardiovascular: Reports: no symptoms. Respiratory: Reports: no symptoms. Gastrointestinal: Reports: no symptoms. Genitourinary: Reports: no symptoms. Musculoskeletal: Reports: no symptoms. Objective Last 24 Hrs of Vital Signs/I&O Vital Signs Date Time Temp Pulse Resp B/P Pulse O2 O2 Flow FiO2 Ox Delivery Rate 04/01 1117 22 94 Room Air 04/01 1117 20 96 Nasal 2.0L Cannula 04/01 1111 Nasal 2.0L Cannula 04/01 0800 94 Nasal 2.0L Cannula 04/01 0800 98.2 75 20 124/58 98 Nasal 2.0L Cannula 04/01 0005 97.6 73 18 130/60 96 Nasal 2.0L Cannula 04/01 0000 Nasal 2.0L Cannula 03/31 2212 96 Nasal 2.0L Cannula 03/31 2150 97.1 81 18 130/68 96 Nasal 2.0L Cannula 03/31 2020 97.2 88 18 122/60 98 Nasal 2.0L Cannula 03/31 1735 96.5 85 16 118/58 98 Nasal 2.0L Cannula 03/31 1546 98.4 90 18 127/60 95 Nasal 2.0L Cannula Intake & Output 04/01 1600 04/01 0800 04/01 0000 Intake Total 950 2000 Output Total Balance 950 2000 Intake, IV 150 2000 Intake, Oral 800 0 Number 0 Bowel Movements Patient 86.183 kg 86.183 kg Weight Physical Exam General Appearance: Alert, Cooperative, No Acute Distress Skin: No Rashes, No Breakdown, No Significant Lesion HEENT: Atraumatic, EOMI Neck: Supple Cardiovascular: Regular Rate, Normal S1, Normal S2, 3/6 systolic murmur at the aortic area Lungs: Clear to Auscultation, Normal Air Movement Abdomen: Normal Bowel Sounds, Soft, No Tenderness Neurological: Normal Speech, Normal Tone Extremities: No Cyanosis, Normal Pulses, 1+ pitting edema, swelling and crepitation on the right knee>left Vascular: Normal Pulses, Pulses Symmetrical Current Medications: Current Medications Sig/Bianca Start time Last Medication Dose Route Stop Time Status Admin Acetaminophen 1,000 MG Q6P PRN 03/31 1914 DC IV Aspirin Buffered 81 MG QAM 04/01 1000 AC 04/01 PO 0918 Ceftazidime 0 .STK-MED ONE 03/31 195 DC .ROUTE Ceftazidime 1,000 MG ONCE ONE 03/31 1914 DC 03/31 IV 03/31 Ceftriaxone Sodium 1,000 MG ONCE ONE 03/31 1530 CAN IV 03/31 1531 Cholecalciferol 400 IU DAILY 04/01 1000 AC 04/01 PO 0918 Diclofenac Sodium 75 MG BID 03/31 2300 DC 04/01 PO 0918 Gentamicin Sulfate 100 MG ONE ONE 03/31 1615 DC 03/31 Dextrose/Water 100 ML IV 03/31 1644 1718 Heparin Sodium 5,000 UNIT Q8 03/31 2200 AC 04/01 (Porcine) SC 1357 Ibuprofen 600 MG Q6P PRN 03/31 1914 DC PO Insulin Aspart 0 TIDAC 04/01 0800 AC 04/01 SC 1159 Losartan Potassium 50 MG QAM 04/01 1000 DC 04/01 PO 0918 Morphine Sulfate 2 MG Q4P PRN 03/31 1914 DC IV Non-Formulary 0 SEE ADMIN CRITERIA 03/31 2030 CAN Medication ANY Patient Medication 1 ED .STK-MED ONE 04/01 1332 DC Teaching ED 04/01 1333 Sodium Chloride 1,000 ML Q20H 04/01 1015 AC 04/01 IV 04/02 0614 1047 Sodium Chloride 1,000 ML ONCE ONE 03/31 1930 DC 03/31 IV 04/01 0849 2021 Sodium Chloride 1,000 ML BOLUS ONE 03/31 1530 DC 03/31 IV 03/31 1629 1718 Vancomycin HCl 1,000 MG ONCE ONE 03/31 1914 DC 03/31 Dextrose/Water 250 ML IV 03/31 Last 24 Hrs of Lab/Rehan Results Last 24 Hrs of Labs/Mics: Laboratory Tests 04/01/16 0730: CBC w Diff NO MAN DIFF REQ, RBC 3.70 L, MCV 78.5 L, MCH 25.5 L, RDW 21.0 H, MPV 8.5, Gran % 83.5 H, Lymphocytes % 10.2 L, Monocytes % 5.8, Eosinophils % 0.5, Basophils % 0 L, Absolute Granulocytes 18.0 H, Absolute Lymphocytes 2.2, Absolute Monocytes 1.3 H, Absolute Eosinophils 0.1, Absolute Basophils 0, PUBS MCHC 32.4 L 04/01/16 0700: Anion Gap 11, Estimated GFR 27 L, BUN/Creatinine Ratio 30.6 H Microbiology 03/31 1540 BLOOD: Blood Culture - RES 03/31 1521 BLOOD: Blood Culture - RES Assessment/Plan Assessment: Patient is an 89-year-old lady with PMH of dementia, recurrent UTIs, aortic stenosis, DM, HTN, HLD who is BIBA due to worsening weakness and altered mental status for about 4-5 days. In the ED patient was found to have T 0f 100.0, DE:92 , desaturating to 88% in RA (95% on 2L). She is alert and awake not oriented, does not appear in respiratory distress or febrile. UA suggests UTI, CXR appear normal. she received IV hydration and a dose of gentamicin in the ED. Patient is admitted to the [facility] floor with sepsis of possible urologic origin. Problem list and plan: UTI and altered mental status Patient met SIRS criteria on admission. today more awake and communicative. Patient was given a dose of gentamicin in the ED, she was also given one dose of ceftazidime and vancomycin on admisison yesterday. Patient has a history of recurrent UTIs, Patient was also admitted to [facility] in June 2013 for UTI and cultures grew pseudomonas a., proteus m., and enterococcus. Pt has penicillin allergy. UA on this admission shows high LE, large Hb, packed WBCs, high RBCs. T max 100.1 * UC shows gram- rods, will follow BC * continue IV fluids, NS at 50 cc/hour * ID consult placed, thank you for recommendations. Will continue the patient on ceftazidime 1 gr IV Q12 Hypoxia on admission saturation was found to be 88 % in RA, came up >92% on 2L. family denied coughing or sputum production. Lung exam is clear. * TRC nebs * taper down O2 supplementation as tolerated JULIETA according to the family Cr goes up above 2.0 at times especially with UTIs. today 1.8 higher than yetserday (1.6). possibly due to infection and dehydration . * conitnue IV hydration * will obtain records from Dr. Longoria office on baseline Cr * repeat bep in am Right leg swelling rule out DVT, no change in color, pulses symmetric * doppler US of the right lower leg Diabetes mellitus type 2 hold oral medications * accuchecks TID AC * insulin NSS HTN * continue losartan 50 mg daily Microcytic anemia possibly due to iron deficiency * iron studies * CBC in AM Episode of vomiting and diarrhea * stool exam and culture * CT abdomen and pelvis Chronic knee osteoarthritis and pain * continue pain medications * Tylenol for mild pain, diclofenac for mod-severe pain Diet * diabetic DVT px * SC heparin DNR/DNI Problem List: 1. Diabetes 2. UTI (urinary tract infection) 3. Altered mental state 4. JULIETA (acute kidney injury) 5. Hypoxia Pain Ratin Pain Location: no pain Pain Goal: Pain 4 or less Pain Plan: mild pp Tomorrow's Labs & Rationales: CBC (leukocytosis and low grde fever), BEP (elevated Cr) KARINA DAUGHERTY,LEONEL 04/01/16 1353: Attending MD Review Statement Attending Statement Attending MD Statement: examined this patient, discuss w/resident/PA/WELLNESS GUIDE, agreed w/resident/PA/WELLNESS GUIDE, reviewed EMR data (avail) Attending Assessment/Plan: Patient seen and examined. She is more awake and alert compared to at the time for admission. Her MAXIMUM TEMPERATURE was 100 yesterday afternoon and this morning temperature is 98.2. Rest of vital signs are stable. Chest exam is clear abdomen soft nontender and there is no flank tenderness. Her WBC count has decreased to 21.5. Unfortunately creatinine has increased to 1.8. Findings of the abdomen and pelvis CT scan were reviewed. Urine culture is growing gram- negative rods. Assessment plan * Agree with infectious disease to continue Fortaz. * Await urine culture report. * Monitor mental status closely. * Taper oxygen as tolerated. * Start incentive spirometry
[2016-04-01 08:00] VITALS: BP 124/58
[2016-04-01 08:06] LABS: ABSOLUTE BASOPHIL COUNT 0 /CUMM (0.0-0.2); ABSOLUTE EOSINOPHIL COUNT 0.1 /CUMM (0.0-0.7); ABSOLUTE LYMPH COUNT 2.2 /CUMM (1.2-3.4); ABSOLUTE MONOCYTE COUNT 1.3 /CUMM (0.10-0.60); BASOPHIL % 0 % (0.0-2.0); EOSINOPHIL % 0.5 % (0-5); GRANULOCYTE % 83.5 % (42.2-75.2); MEAN CORPUSCULAR HGB 25.5 PG (27.0-31.0); MEAN CORPUSCULAR HGB CONC 32.4 G/DL (33.0-37.0); MEAN CORPUSCULAR VOLUME 78.5 FL (81.0-99.0); MEAN PLATELET VOLUME 8.5 FL (7.4-10.4); PLATELET COUNT 284 /CUMM (130-400)
[2016-04-01 08:25] LABS: WHITE BLOOD CELL COUNT 21.5 /CUMM (4.8-10.8)
--- NOTE | 2016-04-01 11:49 | Cons- Infect Disease ---
General Information and HPI Consulting Request Date of Consult: 04/01/16 Requested By: MY PELAYO MD Reason for Consult: Rule out sepsis of urologic origin Source of Information: patient, old records Exam Limitations: dementia History of Present Illness: This is an 89-year-old woman with a history of dementia, diabetes, recurrent urinary tract infections, last treated 2 months prior to admission with a one week course of Ciprofloxacin, admitted on March 31 after she was brought to the emergency room from home with several days of increasing weakness and altered mental status associated with urinary incontinence, with one episode of vomiting and one episode of bowel incontinence. On admission she was febrile to 100.1. Laboratory data revealed a white blood cell count of 28,000, with 85 segs and 8 bands, BUN/creatinine 48 and 1.6, with normal liver enzymes. Urinalysis 10-15 RBC/packed WBC. Chest x-ray was negative. Doppler of the right leg was negative. CT of the abdomen and pelvis without contrast revealed a segment of thickened left renal cortex, with no hydronephrosis or obstruction, and diverticulosis. She was given a dose of Gentamicin in the emergency room, followed by doses of Vancomycin and Ceftazidime. She has been afebrile overnight. Presently she does report possible dysuria but denies any abdominal or back pain. 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 ) morphine (VOMITING 03/31/16) Home Med List: Acetaminophen (Tylenol Extra Strength) 500 MG TABLET 1 TAB PO BID PAIN ( Reported) Aspirin (Ecotrin*) 81 MG TABLET.DR 1 TAB PO QAM HEART/BLOOD (Reported) Cholecalciferol (Vitamin D3) (Vitamin D) (Unknown Strength) TABLET (Unknown Dose) PO QAM SUPPLEMENT (Reported) Diclofenac Sodium 75 MG TABLET.DR 1 TAB PO BID PAIN/INFLAMMATION (Reported) Glimepiride 4 MG TABLET 1 TAB PO QAM DM (Reported) Losartan Potassium 50 MG TABLET 1 TAB PO QAM BP (Reported) Lovastatin 10 MG TABLET 1 TAB PO QPM CHOLESTEROL (Reported) Metformin HCl 500 MG TABLET 1 TAB PO BID DM (Reported) Sitagliptin Phosphate (Januvia) 50 MG TABLET 1 TAB PO QAM DM (Reported) Past History Travel History Traveled to [place] past 21 day No Medical History Neurological: dementia Cardiovascular: aortic stenosis, hypertension, PVD Gastrointestinal: GERD Renal: recurrent UTIs Musculoskeletal: osteoarthritis Endocrine: diabetes History of MRSA: No History of VRE: No History of CDIFF: No Isolation History: Standard Influenza Vaccine: 11/09/15 Surgical History Surgical History: appendectomy, knee replacement (right knee November 2001), status post lumbar discectomy x 2, status post bladder suspension, status post left rotator cuff repair, status post surgery for deviated septum, status post right knee arthroscopy and partial meniscectomy Family History Relations & Conditions If Any: Relation not specified for: No pertinent family history Psychosocial History Smoking Status: Unknown If Ever Smoked Functional Ability ADLs Independent: eating. Needs Assist: dressing, toileting, bathing. Ambulation: walker IADLs Needs Assist: shopping, housework, finances, food prep, telephone, transportation, medication admin. Review of Systems Review of Systems Skin: Reports: change in hair/nails (loss of toenail left great toe). All Other Systems: Reviewed and Negative Exam & Diagnostic Data Last 24 Hrs of Vital Signs/I&O Vital Signs Date Time Temp Pulse Resp B/P Pulse O2 O2 Flow FiO2 Ox Delivery Rate 04/01 1117 22 94 Room Air 04/01 1117 20 96 Nasal 2.0L Cannula 04/01 1111 Nasal 2.0L Cannula 04/01 0800 94 Nasal 2.0L Cannula 04/01 0800 98.2 75 20 124/58 98 Nasal 2.0L Cannula 04/01 0005 97.6 73 18 130/60 96 Nasal 2.0L Cannula 04/01 0000 Nasal 2.0L Cannula 03/312 96 Nasal 2.0L Cannula 03/31 2150 97.1 81 18 130/68 96 Nasal 2.0L Cannula 03/31 2019 97.2 88 18 122/60 98 Nasal 2.0L Cannula 03/31 1735 96.5 85 16 118/58 98 Nasal 2.0L Cannula 03/31 1546 98.4 90 18 127/60 95 Nasal 2.0L Cannula 03/31 1428 100.0 92 18 132/60 88 Room Air Room Air 03/31 1321 95 Nasal 2.0L Cannula 03/31 1313 100.1 97 18 156/58 97 Nasal 2.0L Cannula Intake & Output 04/01 1600 04/01 0800 04/01 0000 Intake Total 2000 Output Total Balance 2000 Intake, IV 2000 Intake, Oral 0 Patient 190 lb Weight Physical Exam Other Physical Findings: She is awake and alert in no acute distress. MAXIMUM TEMPERATURE 100.1. Skin reveals no rash. HEENT exam is negative. Neck is supple with no adenopathy. Lungs are clear. Heart regular rhythm with a 2/6 systolic ejection murmur. Abdomen is obese, soft, nontender with positive bowel sounds. Back questionable bilateral CVA tenderness. Extremities no cyanosis, clubbing or edema; no inflammation over the left great toe. Neuro is without focality. Last 24 Hours of Lab Results: Laboratory Tests 04/01 04/01 0730 0700 Chemistry Sodium (137 - 145 mmol/L) 145 Potassium (3.5 - 5.1 mmol/L) 4.7 Chloride (98 - 107 mmol/L) 111 H Carbon Dioxide (22 - 30 mmol/L) 23 Anion Gap (5 - 16) 11 BUN (7 - 17 mg/dL) 55 H Creatinine (0.5 - 1.0 mg/dL) 1.8 H Estimated GFR (>60 ml/min) 27 L BUN/Creatinine Ratio (7 - 25 %) 30.6 H Hematology CBC w Diff NO MAN DIFF REQ WBC (4.8 - 10.8 /CUMM) 21.5 H RBC (4.20 - 5.40 /CUMM) 3.70 L Hgb (12.0 - 16.0 G/DL) 9.4 L Hct (37 - 47 %) 29.0 L MCV (81.0 - 99.0 FL) 78.5 L MCH (27.0 - 31.0 PG) 25.5 L RDW (11.5 - 14.5 %) 21.0 H Plt Count (130 - 400 /CUMM) 284 MPV (7.4 - 10.4 FL) 8.5 Gran % (42.2 - 75.2 %) 83.5 H Lymphocytes % (20.5 - 51.1 %) 10.2 L Monocytes % (1.7 - 9.3 %) 5.8 Eosinophils % (0 - 5 %) 0.5 Basophils % (0.0 - 2.0 %) 0 L Absolute Granulocytes (1.4 - 6.5 /CUMM) 18.0 H Absolute Lymphocytes (1.2 - 3.4 /CUMM) 2.2 Absolute Monocytes (0.10 - 0.60 /CUMM) 1.3 H Absolute Eosinophils (0.0 - 0.7 /CUMM) 0.1 Absolute Basophils (0.0 - 0.2 /CUMM) 0 PUBS MCHC (33.0 - 37.0 G/DL) 32.4 L 03/31 03/31 1423 1407 Chemistry Sodium (137 - 145 mmol/L) 142 Potassium (3.5 - 5.1 mmol/L) 4.4 Chloride (98 - 107 mmol/L) 105 Carbon Dioxide (22 - 30 mmol/L) 23 Anion Gap (5 - 16) 14 BUN (7 - 17 mg/dL) 48 H Creatinine (0.5 - 1.0 mg/dL) 1.6 H Estimated GFR (>60 ml/min) 30 L BUN/Creatinine Ratio (7 - 25 %) 30.0 H Glucose (65 - 99 mg/dL) 194 H Lactic Acid (0.7 - 2.1 mmol/L) 1.3 Calcium (8.4 - 10.2 mg/dL) 9.3 Iron (37 - 170 ug/dL) 14 L TIBC (265 - 497 ug/dL) 249 L Ferritin (11.1 - 264 ng/mL) 69.0 Total Bilirubin (0.2 - 1.3 mg/dL) 0.7 AST (14 - 36 U/L) 15 ALT (9 - 52 U/L) 29 Alkaline Phosphatase (<127 U/L) 90 Troponin I (< 0.11 ng/ml) 0.02 Total Protein (6.3 - 8.2 g/dL) 6.6 Albumin (3.5 - 5.0 g/dL) 3.2 L Globulin (1.9 - 4.2 gm/dL) 3.4 Albumin/Globulin Ratio (1.1 - 2.2 %) 0.9 L Hematology CBC w Diff MAN DIFF ORDERED WBC (4.8 - 10.8 /CUMM) 28.2 H RBC (4.20 - 5.40 /CUMM) 4.11 L Hgb (12.0 - 16.0 G/DL) 10.4 L Hct (37 - 47 %) 31.8 L MCV (81.0 - 99.0 FL) 77.4 L MCH (27.0 - 31.0 PG) 25.2 L RDW (11.5 - 14.5 %) 20.5 H Plt Count (130 - 400 /CUMM) 318 MPV (7.4 - 10.4 FL) 8.1 Gran % (42.2 - 75.2 %) 87.0 H Lymphocytes % (20.5 - 51.1 %) 7.9 L Monocytes % (1.7 - 9.3 %) 5.1 Eosinophils % (0 - 5 %) 0 Basophils % (0.0 - 2.0 %) 0 L Absolute Granulocytes (1.4 - 6.5 /CUMM) 24.5 H Segmented Neutrophils (42.2 - 75.2 %) 85 H Band Neutrophils (0.0 - 5.0 %) 8 H Absolute Lymphocytes (1.2 - 3.4 /CUMM) 2.2 Lymphocytes (20.5 - 51.1 %) 6 L Monocytes (1.7 - 9.3 %) 1 L Absolute Monocytes (0.10 - 0.60 /CUMM) 1.4 H Absolute Eosinophils (0.0 - 0.7 /CUMM) 0 Absolute Basophils (0.0 - 0.2 /CUMM) 0 Platelet Estimate (ADEQUATE) ADEQUATE Hypochromic-Microcytic 1+ Anisocytosis 1+ Microcytic Cells 1+ PUBS MCHC (33.0 - 37.0 G/DL) 32.5 L Urines Urinalysis LIGHT H Urine Color (YEL,AMB,STR) YEL Urine Clarity (CLEAR) HAZY H Urine pH (5.0 - 8.0) 5.5 Ur Specific [place] (1.001 - 1.035) 1.025 Urine Protein (NEG,<30 MG/DL) 100 H Urine Ketones (NEG) NEG Urine Nitrite (NEG) NEG Urine Bilirubin (NEG) NEG Urine Urobilinogen (0.1 - 1.0 EU/dl) 0.2 Ur Leukocyte Esterase (NEG) LARGE H Ur Microscopic SEDIMENT EXAMINED Urine RBC (0 - 5 /HPF) 10-15 H Urine WBC (0 - 2 /HPF) PACKD H Ur Epithelial Cells (NONE,FEW) MANY H Urine Hemoglobin (NEG) LARGE H Urine Glucose (N MG/DL) NEG Last 24 Hours of Rehan Results: Blood cultures 2 March 31 negative Urine culture March 31 approximately 75,000 colonies of gram-negative rods Diagnostic Data Recent Imaging Findings: Chest x-ray negative. Doppler of the right leg negative. CT of the abdomen and pelvis without contrast revealed a segment of thickened left renal cortex, with no hydronephrosis or obstruction, and diverticulosis. Assessment/Plan Assessment/Plan Impression: This is an 89-year-old woman with dementia, diabetes and recurrent urinary tract infections, admitted on March 31 with several days of altered mental status and increasing weakness, found to have a low-grade fever with leukocytosis and with a urine culture positive for gram-negative rods. Her history is not reliable secondary to her underlying dementia but, in the absence of any other obvious focus of infection, a urinary source seems most likely. There was a report of 1 episode of fecal incontinence, raising concern for C. difficile given her recent antibiotics, though she has had no diarrhea since admission and her CT scan was negative for colitis. The CT scan does suggest the possibility of a left renal mass and, if her renal function normalizes, a repeat CT with IV contrast may be helpful. Suggestion: 1. Follow-up urine and blood cultures 2. Stool for C. difficile if she has diarrhea 3. Eventual repeat CT with IV contrast once/if creatinine normalizes 4. Continue Ceftazidime at a dose of 1 g IV every 12 hours pending above Consult Acknowledgment - Thank you for your consult request.
[2016-04-01 17:17] VITALS: BP 124/68
[2016-04-02 00:20] VITALS: BP 118/70
--- NOTE | 2016-04-02 06:17 | Discharge Summary ---
Visit Information Visit Dates Admission Date: 03/31/16 Discharge Date: 04/02/2016 Hospital Course Course Attending Physician: PIERCE DAUGHERTY,MY Sow Primary Care Physician: ALEKSANDAR DAUGHERTY,JONATHAN Jara Other Care Providers: Dr. Meelndez Consulting Request: Consulting Specialty: Infectious Disease Hospital Course: Mrs Crane is an 89-year-old lady with a PMH of HTN, GERD, DM, recurrent UTIs, PVD, HLD, dementia and OA brought in by family members out of concern for a urinary tract infection. On admission information was obtained from family members due to her clinical condition. They report that she has a standing order of ciprofloxacin that she takes whenever symptoms of UTI are noticed. Last episode was in January 2016. Her most current symptoms started the weekend before with noticeable decrease in vocalization, confusion, difficulty with ambulation and generalized weakness. She did have one episode of nonbloody emesis and diarrhea the weekend with no reported fevers or chills. On the day of admission she appeared to have increased respiratory effort prompting them to bring her to the ER for evaluation. At her baseline she is independent with feeding but requires 24-hour help with all other ADLs. The visiting nurse also mentioned a noticeable increase in her blood sugars the day prior. VS on admission: BP 156/58, HR 97, RR 18, SPO2 97% on 2 LNC, T 100.1 Physical exam: Alert, no acute distress, baseline diminished hearing. No evidence of focal neurologic deficits. RRR, normal S1/S2, 3/6 systolic murmur most prominent in the aortic region. Diminished breath sounds and basilar regions bilaterally. Hyperactive bowel sounds, mild discomfort elicited with palpation of the suprapubic region. Right lower extremity slightly larger with no evidence of hematoma or bruising. Pertinent labs: WBC 28.2, 8% bands, H&H 10.4/31.8, platelets 318, BUN/CR/1.6, glucose 194 Lactic acid: 1.3 UA: Large leukocyte esterase, packed WBCs CXR: No acute pulmonary process Venous Doppler right lower extremity: Normal triplex scan without evidence of DVT involving right lower extremity CT abdomen pelvis without contrast: Ecchymosis, no diverticulitis, no findings to suggest colitis. Segment of thickened left renal cortex, suboptimally evaluated in the absence of IV contrast. An underlying mass in this region cannot be excluded. The patient was admitted to general medicine for management of the following problems: 1. UTI 2. SIRS criteria/pyelonephritis 3. Acute kidney injury 4. Anemia 5. Diabetes 6. Hypertension Hospital course: 1. UTI/pyelonephritis * Previous urine cultures in 2013: Proteus, Pseudomonas and enterococcus have been isolated. She did receive 1 dose of gentamicin in the ER * However, out of concern for nephrotoxicity we discontinued gentamicin, start the patient on ceftaz and vancomycin. * Consulted with our infectious disease specialist Dr Melendez who recommended continue with ceftaz pending cultures. Due to the remote history of enterococcus culture, no risk factors for exposure to resistance bacteria, vancomycin was discontinued * ###### 2. SIRS criteria * HR 97 bpm, WBC 28.2 * We started patient on normal saline with cautious monitoring for fluid overload * Noted resolution of leukocytosis, fever and heart rate throughout hospital course 3. Acute kidney injury * Last creatinine from 2013 was 1.1. On admission BUN/CR 48/1.6 * Fluid hydration with normal saline * ####### 4. Iron deficiency Anemia * Patient presented with a microcytic anemia * Iron studies: Iron 14L, TIBC 249L * Started her on ferrous sulfate 325 mg twice a day 5. Diabetes * Patient was maintained on a low-dose sliding scale 6. 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 Ambulation with walker Follow-Up Instructions/Appts: Patient advised to follow-up with her PCP within one week after discharge or return to the ER if symptoms recur Medications at Discharge Discharge Medications: Stop taking the following medications: Diclofenac Sodium (Diclofenac Sodium) 75 MG TABLET. ORAL TWICE DAILY Qty = 180 Continue taking these medications: Losartan Potassium (Losartan Potassium) 50 MG TABLET 1 Tablet ORAL Every Morning Qty = 90 Comments: PER PT DAUGHTER Sitagliptin Phosphate (Januvia) 50 MG TABLET 1 Tablet ORAL Every Morning Qty = 90 Comments: PER PT DAUGHTER Lovastatin (Lovastatin) 10 MG TABLET 1 Tablet ORAL Every night Qty = 90 Comments: PER PT DAUGHTER Glimepiride (Glimepiride) 4 MG TABLET 1 Tablet ORAL Every Morning Qty = 135 Comments: PER PT DAUGHTER STOPPED 0.5 TAB IN QPM Metformin HCl (Metformin HCl) 500 MG TABLET 1 Tablet ORAL TWICE DAILY Qty = 180 Comments: PER PT DAUGHTER Acetaminophen (Tylenol Extra Strength) 500 MG TABLET 1 Tablet ORAL TWICE DAILY Comments: PER PT DAUGHTER Aspirin (Ecotrin*) 81 MG TABLET. 1 Tablet ORAL Every Morning Comments: PER PT DAUGHTER Cholecalciferol (Vitamin D3) (Vitamin D) (Unknown Strength) TABLET Unknown Dose ORAL Every Morning Comments: PER PT DAUGHTER Start taking the following new medications: Ferrous Sulfate (Ferrous Sulfate) 325 MG (65 MG IRON) TABLET. 325 Milligram ORAL TWICE DAILY Qty = 60 No Refills Ciprofloxacin HCl (Ciprofloxacin HCl) 500 MG TABLET 1 Tablet ORAL DAILY Qty = 6 No Refills Copies To: GAIL DAUGHERTY,RENITA Jin; ALEKSANDAR DAUGHERTY,JONATHAN Jara; VERNON DAUGHERTY,SHANELL Cowart
--- NOTE | 2016-04-02 07:12 | PN- Housestaff ---
ASHLYN DAUGHERTY,[facility] 04/02/16 0712: Subjective Follow-up For: AMS Sepsis in the setting of UTI Subjective: I saw and examined the patient at bedside, she is eating breakfast and is significantly more alert compared to yesterday and on admission. Does not reports any pain or discomfort, does not report any complaints. Review of Systems Constitutional: Denies: chills, fever, malaise, weakness. EENTM: Reports: no symptoms. Cardiovascular: Reports: no symptoms. Respiratory: Reports: no symptoms. Gastrointestinal: Reports: no symptoms. Genitourinary: Reports: no symptoms. Musculoskeletal: Reports: no symptoms. Skin: Reports: no symptoms. Objective Last 24 Hrs of Vital Signs/I&O Vital Signs Date Time Temp Pulse Resp B/P Pulse O2 O2 Flow FiO2 Ox Delivery Rate 04/02 0812 98.2 90 20 152/82 91 Room Air 04/02 0020 98.5 81 22 118/70 93 Room Air 04/02 0000 93 Room Air 04/01 1717 98.3 85 22 124/68 92 04/01 1600 92 Room Air 04/01 1117 22 94 Room Air 04/01 1117 20 96 Nasal 2.0L Cannula 04/01 1111 Nasal 2.0L Cannula Intake & Output 04/02 1600 04/02 0800 04/02 0000 Intake Total 520 880 Output Total Balance 520 880 Intake, IV 400 400 Intake, Oral 120 480 Patient 76.43 kg Weight Physical Exam General Appearance: Alert, Oriented X3, Cooperative, No Acute Distress Skin: No Rashes, No Breakdown, No Significant Lesion HEENT: Atraumatic, EOMI Neck: Supple, No JVD Cardiovascular: Regular Rate, Normal S1, Normal S2, 3/6 systolic murmur Lungs: Normal Air Movement, scattered wheezing on both sides, no crackles Abdomen: Normal Bowel Sounds, Soft, No Tenderness Neurological: Normal Speech, Strength at 5/5 X4 Ext, Normal Tone, Sensation Intact Extremities: No Clubbing, No Cyanosis, No Edema, Normal Pulses Vascular: Normal Pulses, Pulses Symmetrical Current Medications: Current Medications Sig/Bianca Start time Last Medication Dose Route Stop Time Status Admin Aspirin Buffered 81 MG QAM 04/01 1000 AC 04/02 PO 0750 Ceftazidime 1,000 MG Q12H 04/01 2000 AC 04/02 IV 0750 Ceftazidime 1,000 MG Q12 04/01 1459 DC 04/01 IV 1855 Cholecalciferol 400 IU DAILY 04/01 1000 AC 04/02 PO 0750 Ferrous Sulfate 325 MG BID 04/01 220 AC 04/02 PO 0750 Heparin Sodium 5,000 UNIT Q8 03/31 220 AC 04/02 (Porcine) SC 0509 Insulin Aspart 0 TIDAC 04/01 0800 AC 04/02 SC 0750 Patient Medication 1 ED .STK-MED ONE 04/01 1332 MD Teaching ED 04/01 1333 Senna/Docusate Sodium 2 TAB DAILY PRN 04/01 1845 AC 04/02 PO 0750 Sodium Chloride 1,000 ML Q20H 04/01 1015 AC 04/02 IV 04/03 0213 0531 Last 24 Hrs of Lab/Rehan Results Last 24 Hrs of Labs/Mics: Laboratory Tests 04/02/16 0625: Anion Gap 11, Estimated GFR 30 L, BUN/Creatinine Ratio 31.3 H, Magnesium 1.7, CBC w Diff NO MAN DIFF REQ, RBC 3.60 L, MCV 78.0 L, MCH 25.5 L, RDW 21.5 H, MPV 8.8, Gran % 76.3 H, Lymphocytes % 15.5 L, Monocytes % 5.7, Eosinophils % 2.4, Basophils % 0.1, Absolute Granulocytes 13.9 H, Absolute Lymphocytes 2.8, Absolute Monocytes 1.0 H, Absolute Eosinophils 0.4, Absolute Basophils 0, PUBS MCHC 32.6 L Assessment/Plan Assessment: Patient is an 89-year-old lady with PMH of dementia, recurrent UTIs, aortic stenosis, DM, HTN, HLD who is BIBA due to worsening weakness and altered mental status for about 4-5 days. In the ED patient was found to have T 0f 100.0, MS:92 , desaturating to 88% in RA (95% on 2L). She was alert and awake not oriented, did not appear in respiratory distress or febrile. UA showed high LE, large Hb, packed WBCs, high RBCs. T max 100.1 Patient was given a dose of gentamicin in the ED, she was then started on ceftazidime and also received a dose of vancomycin on admission which was then discontinued. Patient is admitted to the floor with sepsis of possible urologic origin. Problem list and plan: Altered mental status and Sepsis in the setting of UTI Has been receiving IV Abx (ceftazidime is continued per Dr. Melendez). Mentation has significantly improved and she is communicative and cheerful. She has a history of recurrent UTIs, was admitted to [place] in June 2013 for UTI and cultures grew pseudomonas a., proteus m., and enterococcus. She has penicillin allergy. * UC shows enterobacter, will follow BC, NG so far * off IV fluids, as patient is eating and drinking well * Per ID stopped Ceftaz today, patient will receive ciprofloxacin starting tomorrow JULIETA according to the family Cr goes up above 2.0 at times especially with UTIs. today 1.6 improved from yesterday but still higher than baseline. obtained records from Dr. Longoria office and latest BUN and Cr on 12/15/15 were 29 and 1.14, respectively. * continue to monitor BEP Right leg swelling - improved ruled out DVT, no change in color, pulses symmetric. Diabetes mellitus type 2 hold oral medications * accuchecks TID AC * insulin NSS HTN * continue losartan 50 mg daily Microcytic anemia patient has low iron (14), NL ferritin level, low TIBC. * ferrous sulfate 325 BID Episode of vomiting and diarrhea - no episodes noted since admission * stool exam and culture if diarrhea noted CT abdomen and pelvis has shown Mild colonic diverticulosis without evidence for diverticulitis. No findings to suggest colitis. No evidence of bowel obstruction. Segment of thickened left renal cortex, suboptimally evaluated in the absence of intravenous contrast. An underlying mass in this region cannot be excluded. If patient's renal function improves, a contrast-enhanced CT would be helpful to further evaluate this finding. We talked with the family and made them aware of the finding, family do not wish any further work up at this point. They are advised to follow up outpatient regarding this finding with the PCP. Hypoxia on admission - resolved saturation was found to be 88 % in RA, came up >92% on 2L. denied coughing or sputum production. Lung exam clear, except for mild scattered wheezing which improves with nebulizer treatment. Patient is saturating in RA today. * TRC nebs as needed * O2 supplementation as needed Chronic knee osteoarthritis and pain * continue pain medications * Tylenol for mild pain, ibuprofen for mod-severe pain Diet * diabetic DVT px * SC heparin DNR/DNI Problem List: 1. Leukocytosis 2. UTI (urinary tract infection) 3. JULIETA (acute kidney injury) 4. Diabetes Pain Ratin Pain Location: knees Pain Goal: Pain 4 or less Pain Plan: tylenol for mild pain ibuprofen for mod-severe joint pain Tomorrow's Labs & Rationales: CBC (leukocytosis) BEP (elevated Cr) Mg (low magnesium) Consulting Request: Consulting Specialty: Infectious Disease KARINA DAUGHERTY,LEONEL 04/02/16 0941: Attending MD Review Statement Attending Statement Attending Assessment/Plan: Attending MD Statement: examined this patient, discuss w/resident/PA/[employer]NAGER [employer], agreed w/resident/PA/MANAGER [employer], reviewed EMR data (avail) Attending Assessment/Plan: Patient seen and examined. She is more awake and alert compared to yesterday. She is currently afebrile and appears much more comfortable. She denies any abdominal pain or flank pain. MAXIMUM TEMPERATURE 98.5. Rest of vital signs are stable. Chest exam is clear abdomen soft nontender and there is no flank tenderness. Her WBC count has decreased to 18.3 . fortunately creatinine has decreased to 1.6. Findings of the abdomen and pelvis CT scan were reviewed. Urine culture is growing gram-negative rods. Assessment plan * Agree with infectious disease to continue Fortaz. * Await urine culture report. We'll adjust antibiotic based on urine culture report. Patient is currently responding to Fortaz. * Out of bed and ambulate * Monitor mental status closely. * Continueincentive spirometry
[2016-04-02 08:07] LABS: ABSOLUTE BASOPHIL COUNT 0 /CUMM (0.0-0.2); ABSOLUTE EOSINOPHIL COUNT 0.4 /CUMM (0.0-0.7); ABSOLUTE GRANULOCYTE CT 13.9 /CUMM (1.4-6.5); ABSOLUTE LYMPH COUNT 2.8 /CUMM (1.2-3.4); BASOPHIL % 0.1 % (0.0-2.0); EOSINOPHIL % 2.4 % (0-5); GRANULOCYTE % 76.3 % (42.2-75.2); HEMATOCRIT 28.1 % (37-47); MEAN CORPUSCULAR HGB 25.5 PG (27.0-31.0); MEAN CORPUSCULAR HGB CONC 32.6 G/DL (33.0-37.0); MEAN PLATELET VOLUME 8.8 FL (7.4-10.4); PLATELET COUNT 292 /CUMM (130-400); RBC DISTRIBUTION WIDTH 21.5 % (11.5-14.5); WHITE BLOOD CELL COUNT 18.3 /CUMM (4.8-10.8)
[2016-04-02 08:12] VITALS: BP 152/82
--- NOTE | 2016-04-02 13:37 | PN- Infect Dx ---
Subjective Subjective: Afebrile without complaints Objective Last 24 Hrs of Vital Signs/I&O Vital Signs Date Time Temp Pulse Resp B/P Pulse O2 O2 Flow FiO2 Ox Delivery Rate 04/02 0812 98.2 90 20 152/82 91 Room Air 04/02 0020 98.5 81 22 118/70 93 Room Air 04/02 0000 93 Room Air 04/01 1717 98.3 85 22 124/68 92 04/01 1600 92 Room Air Intake & Output 04/02 1600 04/02 0800 04/02 0000 Intake Total 520 880 Output Total Balance 520 880 Intake, IV 400 400 Intake, Oral 120 480 Patient 169 lb Weight Physical Exam Other Physical Findings: She appears comfortable, ambulating in the room, in no acute distress Abdomen is soft, nontender Back no CVA tenderness Extremities no cyanosis, clubbing or edema Results Last 24 Hours of Lab Results: Laboratory Tests 04/02 06 Chemistry Sodium (137 - 145 mmol/L) 144 Potassium (3.5 - 5.1 mmol/L) 4.4 Chloride (98 - 107 mmol/L) 114 H Carbon Dioxide (22 - 30 mmol/L) 19 L Anion Gap (5 - 16) 11 BUN (7 - 17 mg/dL) 50 H Creatinine (0.5 - 1.0 mg/dL) 1.6 H Estimated GFR (>60 ml/min) 30 L BUN/Creatinine Ratio (7 - 25 %) 31.3 H Magnesium (1.6 - 2.3 mg/dL) 1.7 Hematology CBC w Diff NO MAN DIFF REQ WBC (4.8 - 10.8 /CUMM) 18.3 H RBC (4.20 - 5.40 /CUMM) 3.60 L Hgb (12.0 - 16.0 G/DL) 9.2 L Hct (37 - 47 %) 28.1 L MCV (81.0 - 99.0 FL) 78.0 L MCH (27.0 - 31.0 PG) 25.5 L RDW (11.5 - 14.5 %) 21.5 H Plt Count (130 - 400 /CUMM) 292 MPV (7.4 - 10.4 FL) 8.8 Gran % (42.2 - 75.2 %) 76.3 H Lymphocytes % (20.5 - 51.1 %) 15.5 L Monocytes % (1.7 - 9.3 %) 5.7 Eosinophils % (0 - 5 %) 2.4 Basophils % (0.0 - 2.0 %) 0.1 Absolute Granulocytes (1.4 - 6.5 /CUMM) 13.9 H Absolute Lymphocytes (1.2 - 3.4 /CUMM) 2.8 Absolute Monocytes (0.10 - 0.60 /CUMM) 1.0 H Absolute Eosinophils (0.0 - 0.7 /CUMM) 0.4 Absolute Basophils (0.0 - 0.2 /CUMM) 0 PUBS MCHC (33.0 - 37.0 G/DL) 32.6 L Last 24 Hours of Rehan Results: Blood cultures 2 March 31 negative Urine culture March 31 greater than 100,000 colonies of Enterobacter cloacae sensitive to Ceftazidime, Ceftriaxone, Ciprofloxacin, Gentamicin and Bactrim Assessment/Plan Impression: Stable on Ceftazidime Day 2 of treatment for presumed sepsis of urologic origin secondary to Enterobacter. She remains afebrile with white blood cell count decreased though still elevated and with overall improvement in her clinical status. The significance of the CT finding of a possible thickened left renal cortex is unclear, and this may want further evaluation. Suggestion: 1. Renal ultrasound or, if creatinine improves, CT of the abdomen and pelvis with IV contrast 2. Discontinue Ceftazidime 3. Begin Ciprofloxacin 500 mg po every 24 hours
[2016-04-02] MEDS ORDERED: FERROUS SULFAT325 M2 PO (15:24)
[2016-04-02] MEDS ORDERED: CIPROFLOXACIN500 M2 PO (15:26)
--- NOTE | 2016-04-02 15:29 | Patient Discharge Instructions ---
Discharge Instructions General Discharge Information You were seen/treated for: urinary tract infection Special Instructions: Please: 1. check BEP in 1 week and copy your PCP, also follow up with your PCP within 1- 2 weeks of discharge. 2. come back to the ED if symptoms recur 3. We decreased the dose of losartan due to kidney function. We started you on a second medication for blood pressure control. 4. We stopped the glimeperide due to HgA1C of 6.1 and to avoid low blood sugar 5. please follow up with Urology outpatient for recurrent UTIs as well as the new findings on the CT scan of the left kidney. Diet Recommended Diet: Diabetic Activity Activity Self Limited: Yes Acute Coronary Syndrome Inclusion Criteria At DC or during hospital stay patient has or had the following: ACS DIAGNOSIS No Discharge Core Measures Meds if any: Prescribed or Continued at Discharge Meds if any: NOT Prescribed or Continued at Discharge Congestive Heart Failure Inclusion Criteria At DC or during hospital stay patient has or had the following: CHF DIAGNOSIS No Discharge Core Measures Meds if any: Prescribed or Continued at Discharge Meds if any: NOT Prescribed or Continued at Discharge Cerebrovascular accident Inclusion Criteria At DC or during hospital stay patient has or had the following: CVA/TIA Diagnosis No Discharge Core Measures Meds if any: Prescribed or Continued at Discharge Meds if any: NOT Prescribed or Continued at Discharge Venous thromboembolism Inclusion Criteria VTE Diagnosis No VTE Type NONE VTE Confirmed by (Test) NONE Discharge Core Measures - Per Current guidelines, there needs to be overlap - treatment for the first 5 days of Warfarin therapy. - If discharged on Warfarin prior to 5 days of - overlap therapy, the patient will need to be - assessed for post discharge needs including - *Post discharge parental anticoagulation - *Warfarin and/or parental anticoagulation education - *Follow up date to check INR post discharge At least 5 days overlap therapy as Inpatient No Meds if any: Prescribed or Continued at Discharge Note: Overlap Therapy is Warfarin and Anticoagulant Meds if any: NOT Prescribed or Continued at Discharge
--- NOTE | 2016-04-02 15:44 | Discharge Summary ---
Visit Information Visit Dates Admission Date: 03/31/16 Discharge Date: 04/04/16 Hospital Course Course Attending Physician: PIERCE DAUGHERTY,MY Sow Primary Care Physician: JONATHAN HUERTAS MD Consulting Request: Consulting Specialty: Infectious Disease Hospital Course: Patient is an 89-year-old lady with PMH of dementia, recurrent UTIs, aortic stenosis, DM, HTN, HLD who was BIBA due to worsening weakness and altered mental status for 4-5 days. Patient was admitted to the [facility] floor with sepsis of possible urologic origin. UTI and Sepsis In the ED patient was found to have max T of 100.1, OH:92 and desaturating to 88 % in RA (95% on 2L). UA showed high LE, large Hb, packed WBCs, high RBCs. Leukocytosis: WBC 28.2. She has a history of recurrent UTIs, was admitted to [place] in June 2013 for UTI and cultures grew pseudomonas a., proteus m., and enterococcus. She has penicillin allergy. Patient was started on IV fluids and was also given a dose of gentamicin in the ED, she was then started on ceftazidime and vancomycin upon admission which was then tailored to IV ceftazidime per ID suggestions. Mentation significantly improved within the next 24-48 hours and she became more communicative. UC showed enterobacter cloacae. CT scan of the abdomen and pelvis showed a segment of thickened left renal cortex. An underlying mass could not be excluded. This finding was discussed with the daughter and the need for further work up was emphasized; however per family's wishes no further work up were pursued on the above finding at this point. They are advised to follow up outpatient with the PCP for a CT of the abdomen and pelvis with IV contrast to further evaluate the abnormal findings in the left kidney on her initial CT without contrast. Patient did not spike any fever during the hospital stay, WBC came down to 14.0. Per ID, we switched antibiotic treatment to ciprofloxacin and discharged her on Ciprofloxacin daily for 9 more days to complete a 14 day course. JULIETA Creatinine was 1.6 and BUN was 48 on admission. Patient was started on IV fluids with daily monitoring of kidney function. We obtained records from Dr. Huertas office and latest BUN and Cr on 12/15/15 were 29 and 1.14, respectively. BUN and Cr at discharge: 35 and 1.2 close to er baseline. Patient will recheck BEP in 1 week and follow up with PCP. Right knee swelling Patient has chronic knee osteoarthritis; her family reported a recent increase in right leg swelling. In the exam there was mildly increased swelling on the right knee which improved during hospitalization. There was no changes in color and pulses were symmetric. US doppler was negative for DVT. Diabetes mellitus type 2 We held oral medications during admission and controlled BS with insulin SS TID AC. HbA1C last checked with PCP and was 6.1% in December 2015. We restarted the patient on metformin and Januvia at discharge. We will hold Glimepiride as it may cause hypoglycemia in this patient given her age and relatively low HbA1C. HTN Losartan was on hold due to elevated Cr on admission, we will discharge the patient on losartan at half dose (25 mg daily) in addition to 2.5 mg Norvasc at bedtime. Microcytic anemia Patient has low iron (14), NL ferritin level, low TIBC. We started her on ferrous sulfate 325 BID as well as multivitamins to supplement folic acid and B12 Episode of vomiting and diarrhea before admission Patient had not other episodes of diarrhea or vomiting during admission. CT abdomen and pelvis has shown Mild colonic diverticulosis without evidence for diverticulitis. No findings to suggest colitis. No evidence of bowel obstruction. Transient hypoxia on admission Patient had SO2 of 88 % in RA on admission that came up >92% on 2L immediately. She denied coughing or sputum production. Lung exam clear, except for mild scattered wheezing which improved with nebulizer treatment. Patient was saturating in RA during the last 72 hours of hospital and breathing comfortably. Chronic knee osteoarthritis and pain Patient received Tylenol for mild pain, IV acetaminophen for moderate pain and morphine for severe pain. Diet: diabetic DVT px: SC heparin Code status: DNR/DNI Allergies: Coded Allergies: Penicillins (UNKNOWN PER PT DAUGHTER USUALLY SWELLS AND GETS HIVES TO MED ) Sulfa (Sulfonamide Antibiotics) (HIVES 03/31/16) atorvastatin (From LIPITOR) (UNKNOWN PER PT DAUGHTER 03/31/16) erythromycin base (HIVES, SWELLING 03/31/16) lisinopril (UNKNOWN PER PT DAUGHTER REPORTS PT ALWAYS SWELLS AND GET HIV ) morphine (VOMITING 03/31/16) Disposition Summary Disposition Principal Diagnosis: Sepsis of Urologic origin, UTI, possible pyelonephritis. Additional Diagnosis: JULIETA, microcytic anemia, History of : Dementia, diabetes, knee osteoarthritis, HLD, aortic stenosis. Discharge Disposition: home health services Discharge Instructions General Discharge Information Code Status: Do Not Resucitate/Intubat Patient's Diet: diabetic diet Patient's Activity: as tolerated Follow-Up Instructions/Appts: Please: 1. check BEP in 1 week and copy your PCP, also follow up with your PCP within 1- 2 weeks of discharge. 2. come back to the ED if symptoms recur 3. We decreased the dose of losartan due to kidney function. We started you on a second medication for blood pressure control. 4. We stopped the glimeperide due to HgA1C of 6.1 and to avoid low blood sugar 5. please follow up with Urology outpatient for recurrent UTIs as well as the new findings on the CT scan of the left kidney. Medications at Discharge Discharge Medications: Stop taking the following medications: Losartan Potassium (Losartan Potassium) 50 MG TABLET ORAL Every Morning Qty = 90 Diclofenac Sodium (Diclofenac Sodium) 75 MG TABLET. ORAL TWICE DAILY Qty = 180 Glimepiride (Glimepiride) 4 MG TABLET ORAL Every Morning Qty = 135 Continue taking these medications: Sitagliptin Phosphate (Januvia) 50 MG TABLET 1 Tablet ORAL Every Morning Qty = 90 Comments: NOT GIVEN IN HOSPITAL Lovastatin (Lovastatin) 10 MG TABLET 1 Tablet ORAL Every night Qty = 90 Comments: NOT GIVEN IN HOSPITAL Metformin HCl (Metformin HCl) 500 MG TABLET 1 Tablet ORAL TWICE DAILY Qty = 180 Comments: NOT GIVEN IN HOSPITAL Acetaminophen (Tylenol Extra Strength) 500 MG TABLET 1 Tablet ORAL TWICE DAILY Comments: NOT GIVEN IN HOSPITAL Aspirin (Ecotrin*) 81 MG TABLET. 1 Tablet ORAL Every Morning Comments: Last Taken: 04/04/16 Time: 0900AM Cholecalciferol (Vitamin D3) (Vitamin D) (Unknown Strength) TABLET 1 Tablet ORAL Every Morning Comments: Last Taken: 04/04/16 Time: 0900AM Ciprofloxacin HCl (Ciprofloxacin HCl) 500 MG TABLET 1 Tablet ORAL DAILY Qty = 9 Comments: Last Taken: 04/04/16 Time: 0900AM This prescription has been renewed Start taking the following new medications: Ferrous Sulfate (Ferrous Sulfate) 325 MG (65 MG IRON) TABLET. 325 Milligram ORAL TWICE DAILY Qty = 60 No Refills Comments: Last Taken: 04/04/16 Time: 0900AM Ciprofloxacin HCl (Ciprofloxacin HCl) 500 MG TABLET 1 Tablet ORAL DAILY Qty = 6 No Refills Comments: Last Taken: 04/04/16 Time: 0900AM Losartan Potassium (Losartan Potassium) 25 MG TABLET 1 Tablet ORAL DAILY Qty = 30 No Refills Comments: Last Taken: 04/04/16 Time: 0900AM Amlodipine (Norvasc) 2.5 MG TABLET 1 Tablet ORAL DAILY Qty = 30 No Refills Comments: NOT GIVEN IN HOSPITAL Multivitamin (Multivitamins) 1 EACH CAPSULE 1 Tablet ORAL DAILY Qty = 30 No Refills Comments: NOT GIVEN Copies To: ALEKSANDAR DAUGHERTY,JONATHAN Jara Attending MD Review Statement Documenting Attending: PIERCE DAUGHERTY,MY Sow Other Findings: Agree with the above discharge plan.
[2016-04-02 16:09] VITALS: BP 154/98
[2016-04-02 16:16] VITALS: BP 152/92
[2016-04-02 22:30] VITALS: BP 180/90
[2016-04-02 23:37] VITALS: BP 150/110
[2016-04-03 00:15] VITALS: BP 180/102
[2016-04-03 05:14] VITALS: BP 160/80
--- NOTE | 2016-04-03 06:59 | PN- Housestaff ---
See Addendum Subjective Follow-up For: AMS Sepsis in the setting of UTI JULIETA Anemia Subjective: Patient is awake and alert not oriented to person and time, has not complaints, does not report any SOB, abdominal pain, knee pain. Does not appear in respiratory distress or feverish. Does not remember her daughter coming to see her yesterday. has dementia at baseline. Review of Systems Constitutional: Denies: chills, fever. EENTM: Reports: no symptoms. Cardiovascular: Reports: no symptoms. Respiratory: Reports: no symptoms. Gastrointestinal: Reports: no symptoms. Genitourinary: Reports: no symptoms. Musculoskeletal: Reports: no symptoms. Skin: Reports: no symptoms. Objective Last 24 Hrs of Vital Signs/I&O Vital Signs Date Time Temp Pulse Resp B/P Pulse O2 O2 Flow FiO2 Ox Delivery Rate 04/03 0514 160/80 04/03 0127 102 180/102 04/03 0015 180/102 04/03 0000 Room Air 04/02 2337 97.6 87 18 150/110 93 Room Air 04/02 2230 180/90 04/02 1616 152/92 04/02 1609 97.9 96 18 154/98 91 04/02 0812 98.2 90 20 152/82 91 Room Air Intake & Output 04/03 0800 04/03 0000 04/02 1600 Intake Total 750 1200 Output Total Balance 750 1200 Intake, IV 400 Intake, Oral 750 800 Number 0 Bowel Movements Physical Exam General Appearance: Alert, Cooperative, No Acute Distress Skin: No Significant Lesion HEENT: Atraumatic, EOMI Neck: Supple, No JVD Cardiovascular: Normal S1, Normal S2, 3/6 systolic murmur, regular Lungs: Clear to Auscultation, Normal Air Movement Abdomen: Normal Bowel Sounds, Soft, No Tenderness Neurological: Normal Speech, Normal Tone Extremities: No Edema, Normal Pulses Vascular: Pulses Symmetrical Current Medications: Current Medications Sig/Bianca Start time Last Medication Dose Route Stop Time Status Admin Amlodipine Besylate 5 MG ONCE ONE 04/03 0115 DC 04/03 PO 04/03 0116 0127 Aspirin Buffered 81 MG QAM 04/01 1000 AC 04/02 PO 0750 Bisacodyl 5 MG ONE ONE 04/03 0730 DC PO 04/03 0731 Ceftazidime 1,000 MG Q12H 04/01 2000 DC 04/02 IV 0750 Cholecalciferol 400 IU DAILY 04/01 1000 AC 04/02 PO 0750 Ciprofloxacin 500 MG DAILY 04/03 1000 AC PO 04/07 0959 Ferrous Sulfate 325 MG BID 04/01 220 AC 04/02 PO 2056 Heparin Sodium 5,000 UNIT Q8 03/31 2200 AC 04/03 (Porcine) SC 0514 Insulin Aspart 0 TIDAC 04/01 0800 AC 04/02 SC 1752 Magnesium Oxide 400 MG ONE ONE 04/02 1045 DC 04/02 PO 04/02 1046 1243 Polyethylene Glycol 17 GM DAILY 04/03 1000 AC PO Senna/Docusate Sodium 2 TAB DAILY PRN 04/01 1845 AC 04/02 PO 0750 Sodium Chloride 1,000 ML Q20H 04/01 1015 DC 04/02 IV 04/03 0213 0531 Last 24 Hrs of Lab/Rehan Results Last 24 Hrs of Labs/Mics: Laboratory Tests 04/03/16 0615: Sodium Pending, Potassium Pending, Chloride Pending, Carbon Dioxide Pending, Anion Gap Pending, BUN Pending, Creatinine Pending, BUN/Creatinine Ratio Pending , Magnesium Pending, CBC w Diff Pending, WBC Pending, RBC Pending, Hgb Pending, Hct Pending, MCV Pending, MCH Pending, RDW Pending, Plt Count Pending, MPV Pending, PUBS MCHC Pending Assessment/Plan Assessment: Patient is an 89-year-old lady with PMH of dementia, recurrent UTIs, aortic stenosis, DM, HTN, HLD who is BIBA due to worsening weakness and altered mental status for about 4-5 days. In the ED patient was found to have T 0f 100.0, VA:92 , desaturating to 88% in RA (95% on 2L). She was alert and awake not oriented, did not appear in respiratory distress or febrile. UA showed high LE, large Hb, packed WBCs, high RBCs. T max 100.1 Patient was given a dose of gentamicin in the ED, she was then started on ceftazidime and also received a dose of vancomycin on admission which was then discontinued. Patient is admitted to the floor with sepsis of possible urologic origin. Problem list and plan: Altered mental status and Sepsis in the setting of UTI Has been receiving IV Abx (ceftazidime is continued per Dr. Melendez). Mentation has significantly improved and she is more communicative and cheerful. She has a history of recurrent UTIs, was admitted to [place] in June 2013 for UTI and cultures grew pseudomonas a., proteus m., and enterococcus. She has penicillin allergy. * UC shows enterobacter, will follow BC NG so far * off IV fluids, as patient is eating and drinking well * Per ID stopped Ceftaz yestaerday after 3 days, patient will receive ciprofloxacin starting today, WE WILL CHECK BEP AGAIN TOMORROW AM, IF IMPROVINJG WE WILL DISCAHRGE HER ON CIPROFLOXACIN BID FOR 9 MORE DAYS TO COMPLETE 14 DAY COURSE. JULIETA according to the family Cr goes up above 2.0 at times especially with UTIs. today 1.6 improved from yesterday but still higher than baseline. obtained records from Dr. Longoria office and latest BUN and Cr on 12/15/15 were 29 and 1.14, respectively. * Recheck BEP in am * Recheck BEP in 1 week and follow up with PCP. Right knee swelling - improved Ruled out DVT, no changes in color, pulses symmetric. Patient has chronic osteoarthritis. Diabetes mellitus type 2 held oral medications during admission and has been on insulin SS TID AC. HbA1C last checked with PCP and was 6.1% in December 2015. We restart the patient on metformin at discharge as well as Jenuvia. Will hold Glimiperide as it may cause hypolycemia in this patient given her age and relatively low HbA1C. HTN * losartan was on hold due to elevated Cr, patient was hypertensive overnight and was given a dose of amlodipine 5 mg. we will discahrge the patient on losartan at half dose (25 mg daily) in addition to 2.5 mg Norvasc at bedtime. Microcytic anemia patient has low iron (14), NL ferritin level, low TIBC. * ferrous sulfate 325 BID * multivitamins to supplement folic acid and B12 Episode of vomiting and diarrhea - no episodes noted since admission * stool exam and culture if diarrhea noted CT abdomen and pelvis has shown Mild colonic diverticulosis without evidence for diverticulitis. No findings to suggest colitis. No evidence of bowel obstruction. Segment of thickened left renal cortex, suboptimally evaluated in the absence of intravenous contrast. An underlying mass in this region cannot be excluded. If patient's renal function improves, a contrast-enhanced CT would be helpful to further evaluate this finding. We talked with the family and made them aware of the finding, family do not wish any further work up at this point. They are advised to follow up outpatient regarding this finding with the PCP. Hypoxia on admission - resolved saturation was found to be 88 % in RA, came up >92% on 2L. denied coughing or sputum production. Lung exam clear, except for mild scattered wheezing which improves with nebulizer treatment. Patient is saturating in RA today. * TRC nebs as needed * O2 supplementation as needed Chronic knee osteoarthritis and pain * continue pain medications * Tylenol for mild pain Diet * diabetic DVT px * SC heparin DNR/DNI Problem List: 1. Leukocytosis 2. Diabetes 3. Hypertension 4. UTI (urinary tract infection) 5. Altered mental state 6. JULIETA (acute kidney injury) Pain Ratin Pain Location: no pain Pain Goal: Pain 4 or less Pain Plan: tylenol ibuprofen Tomorrow's Labs & Rationales: CBC (leukcytosis) BEP (monitor cr) Consulting Request: Consulting Specialty: Infectious Disease
[2016-04-03 07:51] LABS: ABSOLUTE BASOPHIL COUNT 0.1 /CUMM (0.0-0.2); ABSOLUTE EOSINOPHIL COUNT 0.3 /CUMM (0.0-0.7); ABSOLUTE GRANULOCYTE CT 9.1 /CUMM (1.4-6.5); ABSOLUTE LYMPH COUNT 3.3 /CUMM (1.2-3.4); ABSOLUTE MONOCYTE COUNT 1.2 /CUMM (0.10-0.60); BASOPHIL % 0.5 % (0.0-2.0); EOSINOPHIL % 2.3 % (0-5); GRANULOCYTE % 64.6 % (42.2-75.2); MEAN CORPUSCULAR HGB 25.1 PG (27.0-31.0); MEAN CORPUSCULAR HGB CONC 32.4 G/DL (33.0-37.0); MEAN CORPUSCULAR VOLUME 77.7 FL (81.0-99.0); MEAN PLATELET VOLUME 8.5 FL (7.4-10.4); PLATELET COUNT 329 /CUMM (130-400); RBC DISTRIBUTION WIDTH 21.7 % (11.5-14.5); RED BLOOD CELL CT 3.73 /CUMM (4.20-5.40)
[2016-04-03 08:12] VITALS: BP 140/80
[2016-04-03] MEDS ORDERED: NORVASC2.5 M1 PO (09:31)
[2016-04-03] MEDS ORDERED: LOSARTAN POTASS25 M1 PO (09:31)
[2016-04-03] MEDS ORDERED: MULTIVITAMINS1 EAC8 PO (09:42)
--- NOTE | 2016-04-03 12:37 | PN- Infect Dx ---
Subjective Subjective: Afebrile without complaints Objective Last 24 Hrs of Vital Signs/I&O Vital Signs Date Time Temp Pulse Resp B/P Pulse O2 O2 Flow FiO2 Ox Delivery Rate 04/03 0948 86 150/82 04/03 0812 97.9 83 20 140/80 91 Room Air 04/03 0800 96 Room Air Room Air 04/03 0514 160/80 04/03 0127 102 180/102 04/03 0015 180/102 04/03 0000 Room Air 04/02 2337 97.6 87 18 150/110 93 Room Air 04/02 2230 180/90 04/02 1616 152/92 04/02 1609 97.9 96 18 154/98 91 Intake & Output 04/03 1600 04/03 0800 04/03 0000 Intake Total 750 Output Total Balance 750 Intake, Oral 750 Physical Exam Other Physical Findings: She appears comfortable in no acute distress Lungs are clear Heart regular rhythm with no murmur Abdomen is soft, tender on palpation of the right upper quadrant, with no guarding or rebound, positive bowel sounds Back no CVA tenderness Extremities no cyanosis, clubbing or edema Results Last 24 Hours of Lab Results: Laboratory Tests 04/03 614 Chemistry Sodium (137 - 145 mmol/L) 143 Potassium (3.5 - 5.1 mmol/L) 4.1 Chloride (98 - 107 mmol/L) 110 H Carbon Dioxide (22 - 30 mmol/L) 24 Anion Gap (5 - 16) 9 BUN (7 - 17 mg/dL) 37 H Creatinine (0.5 - 1.0 mg/dL) 1.3 H Estimated GFR (>60 ml/min) 39 L BUN/Creatinine Ratio (7 - 25 %) 28.5 H Magnesium (1.6 - 2.3 mg/dL) 1.7 Hematology CBC w Diff NO MAN DIFF REQ WBC (4.8 - 10.8 /CUMM) 14.0 H RBC (4.20 - 5.40 /CUMM) 3.73 L Hgb (12.0 - 16.0 G/DL) 9.4 L Hct (37 - 47 %) 29.0 L MCV (81.0 - 99.0 FL) 77.7 L MCH (27.0 - 31.0 PG) 25.1 L RDW (11.5 - 14.5 %) 21.7 H Plt Count (130 - 400 /CUMM) 329 MPV (7.4 - 10.4 FL) 8.5 Gran % (42.2 - 75.2 %) 64.6 Lymphocytes % (20.5 - 51.1 %) 23.9 Monocytes % (1.7 - 9.3 %) 8.7 Eosinophils % (0 - 5 %) 2.3 Basophils % (0.0 - 2.0 %) 0.5 Absolute Granulocytes (1.4 - 6.5 /CUMM) 9.1 H Absolute Lymphocytes (1.2 - 3.4 /CUMM) 3.3 Absolute Monocytes (0.10 - 0.60 /CUMM) 1.2 H Absolute Eosinophils (0.0 - 0.7 /CUMM) 0.3 Absolute Basophils (0.0 - 0.2 /CUMM) 0.1 PUBS MCHC (33.0 - 37.0 G/DL) 32.4 L Last 24 Hours of Rehan Results: Blood cultures 2 March 31 remain negative Assessment/Plan Impression: Continues to improve now on Ciprofloxacin Day 3 of treatment for presumed sepsis of urologic origin secondary to Enterobacter with temperatures remaining normal and white blood cell count continuing to decrease. Suggestion: 1. Eventual CT of the abdomen and pelvis with IV contrast to further evaluate the abnormal findings in the left kidney on her initial CT without contrast 2. Continue Ciprofloxacin to complete a 14 day course
[2016-04-03 16:42] VITALS: BP 140/72
[2016-04-04 00:06] VITALS: BP 138/78
[2016-04-04 04:12] VITALS: BP 100/64
[2016-04-04 07:30] VITALS: BP 152/62
--- NOTE | 2016-04-04 08:55 | PN- Housestaff ---
RIVER DAUGHERTY,HANNAH 04/04/16 0854: Subjective Follow-up For: Altered mental status Sepsis Acute kidney injury Urinary tract infection Subjective: Patient seen and examined. She is seen lying flat in bed resting comfortably. She reports resolution of her urinary symptoms and admits that she is eating/ drinking adequately. Presently she has no complaints. She denies any headache, fever, chills, chest pain, shortness of breath, nausea, vomiting, diarrhea. No overnight events reported. Review of Systems Constitutional: Reports: see HPI. Objective Last 24 Hrs of Vital Signs/I&O Vital Signs Date Time Temp Pulse Resp B/P Pulse O2 O2 Flow FiO2 Ox Delivery Rate 04/04 0859 80 148/78 04/04 0730 97.8 78 20 152/62 93 Room Air 04/04 0006 98.0 82 20 138/78 93 04/03 2119 84 128/72 04/03 1642 98.0 84 20 140/72 94 Room Air 04/03 1600 94 Room Air 04/03 1452 180/60 Intake & Output 04/04 1600 04/04 0800 04/04 0000 Intake Total 120 500 Output Total Balance 120 500 Intake, IV 0 Intake, Oral 120 500 Number 1 Bowel Movements Physical Exam General Appearance: Alert, Cooperative, No Acute Distress Other Physical Findings: General -well-developed, well-nourished elderly woman in no acute distress HEENT - NCAT, PERRL, EOMI, anicteric sclera Cardio - S1, S2 w/o murmurs/gallops/rubs Resp - CTA bilaterally w/o wheezing/rhochi/crackles GI - soft, nontender, nondistended, bowel sounds present Neuro - Awake and alert, CN II - XII grossly intact Extremities - no edema, pulses intact Current Medications: Current Medications Sig/Bianca Start time Last Medication Dose Route Stop Time Status Admin Amlodipine Besylate 2.5 MG AT BEDTIME 04/03 2199 AC 04/03 PO 2118 Amlodipine Besylate 5 MG DAILY 04/03 1000 DC 04/03 PO 0948 Aspirin Buffered 81 MG QAM 04/01 1000 AC 04/04 PO 0900 Cholecalciferol 400 IU DAILY 04/01 1000 AC 04/04 PO 0900 Ciprofloxacin 500 MG DAILY 04/03 1000 AC 04/04 PO 04/07 0959 0900 Ferrous Sulfate 325 MG BID 04/01 2199 AC 04/04 PO 0859 Heparin Sodium 5,000 UNIT Q8 03/31 2200 AC 04/04 (Porcine) SC 0545 Insulin Aspart 0 TIDAC 04/01 0800 AC 04/04 SC 0859 Losartan Potassium 25 MG DAILY 04/03 1146 AC 04/04 PO 0859 Patient Medication 1 ED .STK-MED ONE 04/03 1350 PR Teaching ED 04/03 1351 Polyethylene Glycol 17 GM DAILY 04/03 1000 AC 04/03 PO 0946 Senna/Docusate Sodium 2 TAB DAILY PRN 04/01 1845 AC 04/03 PO 0950 Last 24 Hrs of Lab/Rehan Results Last 24 Hrs of Labs/Mics: Laboratory Tests 04/04/16 0620: Anion Gap 10, Estimated GFR 42 L, BUN/Creatinine Ratio 29.2 H Assessment/Plan Assessment: Patient continues to remain afebrile without improving leukocytosis while on oral ciprofloxacin. She denies any persistent urinary urgency/frequency. Patient is to be discharged home on oral ciprofloxacin to complete a total antibiotic course of 14 days. She is to follow-up with her primary care provider after discharge and will need to obtain a follow-up CT scan of the abdomen and pelvis for further assessment of the identified findings she in on the inpatient study. Problem list: -Urinary tract infection, on ciprofloxacin -Sepsis, resolved -Acute kidney injury, improving -History of recurrent UTIs -History of dementia -Aortic stenosis, on aspirin -Hypertension, on amlodipine/losartan -Hyperlipidemia -Xzt-krbzcgx-swariouwo diabetes mellitus Plan: -General medicine -Continue home meds, hold oral hypoglycemics -NovoLog sliding scale insulin -Ciprofloxacin 500 mg by mouth daily for 14 total days -Infectious disease consult -Bowel regimen -DVT prophylaxis -Discharge to home today -Outpatient CT scan Problem List: 1. UTI (urinary tract infection) Pain Ratin Pain Location: None Pain Goal: Remain pain free Pain Plan: Pain pathway Tomorrow's Labs & Rationales: None Consulting Request: Consulting Specialty: Infectious Disease GAIL DAUGHERTY,SHARLENE 04/04/16 1507: Attending MD Review Statement Attending Statement Attending MD Statement: examined this patient, discuss w/resident/PA/FINISH MACHINE TENDER, agreed w/resident/PA/FINISH MACHINE TENDER, reviewed EMR data (avail), discussed with nursing, discussed with case mgmt, reviewed images Attending Assessment/Plan: Pt is doing well. Eating and family is eager to take him home with 24-hour care. She is an 89-year-old who is being treated for presumed sepsis of urological origin. She grew Enterobacter in her urine is now on by mouth Cipro per ID to complete a total of 14 day course. Her JULIETA has improved with a creatinine of 1.2 and her white count has gone from 28-14. She is going to finish total 14 days and needs outpatient follow-up. Specifically I informed the family aboiut the need for a f/u CT and this should be included in the discharge summary that she'll eventually need a CT abdomen and pelvis with IV contrast to identify this thickening on the left renal cortex that was seen on the initial CT. Close outpatient follow-up stressed. regarding this finding with the PCP. Hypoxia on admission - resolved saturation was found to be 88 % in RA, came up >92% on 2L. denied coughing or sputum production. Lung exam clear, except for mild scattered wheezing which improves with nebulizer treatment. Patient is saturating in RA today. * TRC nebs as needed * O2 supplementation as needed Chronic knee osteoarthritis and pain * continue pain medications * Tylenol for mild pain Diet * diabetic DVT px * SC heparin DNR/DNI Consulting Request: Consulting Specialty: Infectious Disease GAIL DAUGHERTY,SHARLENE 04/04/16 1507: Attending MD Review Statement Attending Statement Attending MD Statement: examined this patient, discuss w/resident/PA/FINISH MACHINE TENDER, agreed w/resident/PA/FINISH MACHINE TENDER, reviewed EMR data (avail), discussed with nursing, discussed with case mgmt, reviewed images Attending Assessment/Plan: Pt is doing well. Eating and family is eager to take him home with 24-hour care. She is an 89-year-old who is being treated for presumed sepsis of urological origin. She grew Enterobacter in her urine is now on by mouth Cipro per ID to complete a total of 14 day course. Her JULIETA has improved with a creatinine of 1.2 and her white count has gone from 28-14. She is going to finish total 14 days and needs outpatient follow-up. Specifically I informed the family aboiut the need for a f/u CT and this should be included in the discharge summary that she'll eventually need a CT abdomen and pelvis with IV contrast to identify this thickening on the left renal cortex that was seen on the initial CT. Close outpatient follow-up stressed.
[2016-04-04 08:59] VITALS: BP 148/78
[2016-04-04] MEDS ORDERED: CIPROFLOXACIN500 M2 PO (12:03)
== END 2016-04-04 12:38 | disposition home health service (06) | DRG 871 ==
LOC: ENRESERVTM → ENRESERVDT → ERH 12:42 → ENPENDDIS 17:14 → 2NB 17:14 → ERHI 17:14 → 2NB 21:30
PROVIDERS: Internal Medicine; Ophthalmology; Physician Assistant; ADMIT Internal Medicine
DX: A41.9 Sepsis, unspecified organism (principal); G93.41 Metabolic encephalopathy; N17.9 Acute kidney failure, unspecified; N39.0 Urinary tract infection, site not specified; E86.0 Dehydration; F03.90 Unspecified dementia, unspecified severity, without behavioral disturbance, psychotic disturbance, mood disturbance, and anxiety; I35.0 Nonrheumatic aortic (valve) stenosis; E11.9 Type 2 diabetes mellitus without complications; E66.9 Obesity, unspecified; Z68.31 Body mass index [BMI] 31.0-31.9, adult; K21.9 Gastro-esophageal reflux disease without esophagitis; I73.9 Peripheral vascular disease, unspecified; Z79.84 Long term (current) use of oral hypoglycemic drugs
CPT/HCPCS: 2NBSP; 36415; 74176; 81001; 82436; 87040; 87086; 93005; 93010; 96374; 96375; 97116-GO; 97162-GP; 97530-GO; J0131; J0713; J1580; J1644; J3370; J7060

== ENCOUNTER 2016-04-10 13:53 | Emergency (ER) | payer OTHER, MEDICARE ==
[~2016-04-10 13:53] MED LIST changes: +ASPIRIN EC81 M1 PO; +CIPROFLOXACIN500 M2 PO; +DICLOFENAC SODI75 M2 PO; +FERROUS SULFAT325 M2 PO; +GLIMEPIRIDE4 M1 PO; +JANUVIA50 M1 PO; +LOSARTAN POTASS25 M1 PO; +LOSARTAN POTASS50 M1 PO; +LOVASTATIN10 M1 PO; +METFORMIN HCL500 M3 PO; +MULTIVITAMINS1 EAC8 PO; +NORVASC2.5 M1 PO; +TYLENOL EXTRA500 M2 PO; +VITAMIN D1000 UNIT PO
--- NOTE | 2016-04-10 14:06 | ED GENERAL ADULT ---
History of Present Illness General Chief Complaint: Lower Extremity Problems Stated Complaint: BILATERAL LEG PAIN Source: patient, old records, EMS, PATIENT'S HOME HEALTH AIDE Exam Limitations: poor historian Allergies Coded Allergies: Penicillins (UNKNOWN PER PT DAUGHTER USUALLY SWELLS AND GETS HIVES TO MED ) Sulfa (Sulfonamide Antibiotics) (HIVES 03/31/16) atorvastatin (From LIPITOR) (UNKNOWN PER PT DAUGHTER 03/31/16) erythromycin base (HIVES, SWELLING 03/31/16) lisinopril (UNKNOWN PER PT DAUGHTER REPORTS PT ALWAYS SWELLS AND GET HIV ) morphine (VOMITING 03/31/16) Reconcile Medications Acetaminophen (Tylenol Extra Strength) 500 MG TABLET 1 TAB PO BID PAIN ( Reported) Amlodipine (Norvasc) 2.5 MG TABLET 1 TAB PO DAILY Hypertension Aspirin (Ecotrin*) 81 MG TABLET. 1 TAB PO QAM HEART/BLOOD (Reported) Cholecalciferol (Vitamin D3) (Vitamin D) (Unknown Strength) TABLET 1 TAB PO QAM SUPPLEMENT (Reported) Ciprofloxacin HCl 500 MG TABLET 1 TAB PO DAILY urinary tract infection Ciprofloxacin HCl 500 MG TABLET 1 TAB PO DAILY urinary tract infection Ferrous Sulfate 325 MG (65 MG IRON) TABLET. 325 MG PO BID iron definicieny Losartan Potassium 25 MG TABLET 1 TAB PO DAILY Hypertension Lovastatin 10 MG TABLET 1 TAB PO QPM CHOLESTEROL (Reported) Metformin HCl 500 MG TABLET 1 TAB PO BID DM (Reported) Multivitamin (Multivitamins) 1 EACH CAPSULE 1 TAB PO DAILY Supplement Sitagliptin Phosphate (Januvia) 50 MG TABLET 1 TAB PO QAM DM (Reported) Triage Note: BROUGHT IN FROM HOME WITH C/O BILATERAL LEG PAIN X 1 WEEK PER VISITING NURSE . ALSO NOTED BY VISITING NURSE DARKENED AREA ON BILATERAL HEELS. PT OFFERS NO COMPLAINTS Triage Nurses Notes Reviewed? yes HPI: Patient is an 89-year-old female brought in by EMS with chief complaint of weakness and bilateral lower extremity pain. Patient was discharged from [facility] approximately 1.5 weeks ago. Patient's home health aide reports that for the past 6 days patient has not been able to get out of bed. They've been working with the patient's visiting nurse and physical therapist. They are able to get the patient to the edge of the bed with significant effort but patient is not able to stand. Patient was previously able to ambulate with a walker. Patient reports bilateral knee and lower extremity pain intermittently, no pain currently. Patient's home health aide noticed a bruised area to the patient's left heel. Patient denies chest pain, dyspnea, abdominal pain, nausea, vomiting, diarrhea, fevers, chills, recent trauma. (DORY TSE) Vital Signs & Intake/Output Vital Signs & Intake/Output Vital Signs Date Time Temp Pulse Resp B/P Pulse O2 O2 Flow FiO2 Ox Delivery Rate 04/10 1558 96 Room Air 04/10 1557 92 18 150/67 96 Room Air 04/10 1556 88 18 174/74 96 Room Air 04/10 1358 97.1 95 20 161/72 95 Room Air Past History Medical History Any Pertinent Medical History? see below for history Neurological: dementia Cardiovascular: aortic stenosis, hypertension, PVD Gastrointestinal: GERD Renal: recurrent UTIs Musculoskeletal: osteoarthritis Endocrine: diabetes History of MRSA: No History of VRE: No History of CDIFF: No Influenza Vaccine: 11/09/15 Surgical History Surgical History: appendectomy, knee replacement (right knee November 2001), status post lumbar discectomy x 2 status post bladder suspension status post left rotator cuff repair status post surgery for deviated septum status post right knee arthroscopy and partial meniscectomy Psychosocial History What is your primary language Mauritian Family History Family History, If Any: Relation not specified for: No pertinent family history Hx Contributory? No (DORY TSE) Review of Systems Review of Systems Constitutional: Reports: weakness. Denies: chills, fever. EENTM: Reports: no symptoms. Respiratory: Denies: cough, short of breath. Cardiovascular: Denies: chest pain, syncope. GI: Denies: abdominal pain, diarrhea, nausea, vomiting. Genitourinary: Reports: no symptoms. Musculoskeletal: Reports: see HPI, joint pain (left knee). Skin: Reports: no symptoms. Neurological/Psychological: Denies: headache, numbness. Hematologic/Endocrine: Denies: bruising, bleeding. Immunologic/Allergic: Denies: splenectomy. (DORY TSE) Physical Exam Physical Exam General Appearance: alert, awake Head: atraumatic, normal appearance Eyes: Bilateral: normal appearance, PERRL, EOMI. Ears, Nose, Throat: normal pharynx, normal ENT inspection, hearing grossly normal Neck: normal inspection, supple, full range of motion Respiratory: normal breath sounds, chest non-tender, no respiratory distress, lungs clear Cardiovascular: regular rate/rhythm, systolic murmur (4/6) Peripheral Pulses: 2+ dorsalis pedis (R), 2+ dorsalis pedis (L) Gastrointestinal: normal bowel sounds, soft, non-tender Back: normal inspection, normal range of motion Extremities: 3 cm ecchymotic area to left heel. No erythema or skin breakdown. Full range of motion of all 4 extremities. Pain to the left knee with active and passive range of motion. Neurologic/Psych: awake, alert, disoriented to time Skin: warm/dry Lymphatic: no anterior cervical haylie Core Measures ACS in differential dx? Yes ASA ordered for poss ACS? No-ACS ruled out CVA/TIA Diagnosis: No Severe Sepsis Present: No Septic Shock Present: No (HOLLEY LUCERO,DORY) Progress Differential Diagnoses I considered the following diagnoses in my evaluation of the patient: uti, pneumonia, ACS, dehydration, septic joint, arthritis, deconditioning, anemia, sepsis Diagnostic Imaging: Viewed by Me: Radiology Read. Discussed w/RAD: Radiology Read. Radiology Impression: PATIENT: EDIHT REILLY PRESENT AGE: 89 PATIENT ACCOUNT NO: [id number] : [birth year] LOCATION: [facility] ORDERING PHYSICIAN: DORY LUCERO SERVICE DATE: 04/10/16 EXAM TYPE: RAD - XRY-KNEE COMPLETE LEFT EXAMINATION: XR KNEE, LEFT CLINICAL INFORMATION: Left knee pain COMPARISON: None TECHNIQUE: Four views of the left knee. FINDINGS: Osseous alignment is anatomic. No acute fracture is seen. There are moderate degenerative changes with tricompartmental joint space narrowing and osteophytosis. Chondrocalcinosis is also noted. A trace effusion is present. Vascular calcifications are noted. IMPRESSION: No evidence of fracture. Trace effusion. Moderate degenerative changes. DICTATED BY: DINORAH ORTIZ MD DATE/ TIME DICTATED:04/10/161523 BILINGUAL INSIDE SALES REPRESENTATIVE:SALO DATE/TIME TRANSCRIBED: 04/10/161523 CONFIDENTIAL, DO NOT COPY WITHOUT APPROPRIATE AUTHORIZATION. < Electronically signed in Other Vendor System> SIGNED BY: DINORAH ORTIZ MD 04/10/16 1530 CXR Impression: PATIENT: EDITH REILLY PRESENT AGE: 89 PATIENT ACCOUNT NO: [id number] : [birth year] LOCATION: [facility] ORDERING PHYSICIAN: DORY LUCERO SERVICE DATE: 04/10/16 EXAM TYPE: RAD - XRY-PORTABLE CHEST XRAY EXAMINATION: XRY-PORTABLE CHEST XRAY CLINICAL INFORMATION: Generalized weakness COMPARISON: None. TECHNIQUE: Single portable view of the chest FINDINGS: There are low lung volumes. Accounting for this, the lungs are grossly clear. No focal airspace consolidation. No pleural effusions or pneumothorax. Cardiomediastinal silhouette is unremarkable. Osseous structures and soft tissues are unremarkable. IMPRESSION: Low lung volumes, but no focal pneumonia. DICTATED BY: DANUTA SANDOVAL MD DATE/TIME DICTATED:04/10/161437 BILINGUAL INSIDE SALES REPRESENTATIVE:SALO DATE/TIME TRANSCRIBED:04/10/161437 CONFIDENTIAL, DO NOT COPY WITHOUT APPROPRIATE AUTHORIZATION. <Electronically signed in Other Vendor System> SIGNED BY: DANUTA SANDOVAL MD 04/10/16 1445 Initial ED EKG: normal axis, normal intervals, normal p-waves, normal QRS complex, normal sinus rhythm (92 bpm), no ST T wave changes Prior EKG: unchanged (HOLLEY LUCERO,DORY) Plan of Care: Orders Procedure Date/time Status Add-on Test (ER Only) 04/10 1609 Active CULTURE,URINE 04/10 1554 Active MISTAKE 04/10 1406 Active URINALYSIS 04/10 1406 Complete TROPONIN LEVEL 04/10 1406 Complete COMPREHENSIVE METABOLIC PANEL 04/10 1406 Complete CREATINE PHOSPHOKINASE 04/10 1406 Complete CBC WITHOUT DIFFERENTIAL 04/10 1406 Complete EKG 04/10 1406 Active Laboratory Tests 04/10/16 1554: Urinalysis LIGHT H, Urine Color YEL, Urine Clarity CLEAR, Urine pH 6.0, Ur Specific Chauncey 1.025, Urine Protein TRACE H, Urine Ketones NEG, Urine Nitrite NEG, Urine Bilirubin NEG, Urine Urobilinogen 0.2, Ur Leukocyte Esterase SMALL H , Ur Microscopic SEDIMENT EXAMINED, Urine RBC 1-3, Urine WBC 5-10 H, Ur Epithelial Cells MOD H, Urine Bacteria FEW H, Urine Mucus FEW, Urine Hemoglobin MOD H, Urine Glucose NEG 04/10/16 1530: RBC 4.08 L, MCV 78.0 L, MCH 25.0 L, RDW 20.9 H, MPV 7.2 L, Gran % 74.1, Lymphocytes % 17.7 L, Monocytes % 6.7, Eosinophils % 1.3, Basophils % 0.2, Absolute Granulocytes 12.6 H, Absolute Lymphocytes 3.0, Absolute Monocytes 1.1 H, Absolute Eosinophils 0.2, Absolute Basophils 0, PUBS MCHC 32.1 L 04/10/16 1453: Anion Gap 13, Estimated GFR 47 L, BUN/Creatinine Ratio 26.4 H, Glucose 108 H, Calcium 9.5, Total Bilirubin 0.7, AST 23, ALT 30, Alkaline Phosphatase 68, Creatine Kinase 62, Troponin I < 0.01, Total Protein 6.9, Albumin 3.3 L, Globulin 3.6, Albumin/Globulin Ratio 0.9 L Microbiology 04/10 1554 URINE ROUT: Urine Culture - RECD 04/10/2016 3:19:43 PM: Discussed with and seen by Dr. Tabares. Discussed with patient's daughter: If patient does not need to be hospitalized medically then she would prefer bringing patient home. Home services have been set up and would prefer keeping patient out of hospital and not having patient go to an acute rehab facility. 04/10/2016 4:20:50 PM: Results of labs and imaging discuss with the patient and her daughter. Patient's daughter is comfortable with patient coming home. Discussed elevated white blood cell count. Patient's previous white blood cell count on discharge was 14,000 and she appears to have an elevated white blood cell count with multiple previous lab draws. Patient is afebrile, nontoxic- appearing. Left knee does not appear septic clinically. Left heel ulceration does not appear infected. Appears stable for discharge. (DORY TSE) Departure Departure Time of Disposition: 1622 Condition: Stable Clinical Impression Primary Impression: Left knee pain Secondary Impressions: Generalized weakness, Leukocytosis, Ulcer of left heel Referrals: ALEKSANDAR DAUGHERTY,JONATHAN Jara (PCP/Family) Additional Instructions: Follow-up with your primary care provider and your visiting nursing services for further management. Discuss with your visiting nurse wound care for the ulceration to the left heel. Return to the emergency department if fevers or worsening of symptoms. Departure Forms: Customer Survey General Discharge Information (DORY TSE) Departure Disposition: STILL A PATIENT PA/FINANCIAL MANAGEMENT Co-Sign Statement Statement: ED Attending supervision documentation- [X] I saw and evaluated the patient. I have also reviewed all the pertinent lab results and diagnostic results. I agree with the findings and the plan of care as documented in the PA's/FINANCIAL MANAGEMENT's documentation. [X] I have reviewed the ED Record and agree with the PA's/FINANCIAL MANAGEMENT's documentation. [] Additions or exceptions (if any) to the PAs/FINANCIAL MANAGEMENT's note and plan are summarized below: [] (DENISE DAUGHERTY,ISAI) Critical Care Note Critical Care Note Critical Care Time: non-applicable (DORY TSE)
--- NOTE | 2016-04-10 14:45 | RADIOLOGY REPORT ---
EXAMINATION: XRY-PORTABLE CHEST XRAY CLINICAL INFORMATION: Generalized weakness COMPARISON: None. TECHNIQUE: Single portable view of the chest FINDINGS: There are low lung volumes. Accounting for this, the lungs are grossly clear. No focal airspace consolidation. No pleural effusions or pneumothorax. Cardiomediastinal silhouette is unremarkable. Osseous structures and soft tissues are unremarkable. IMPRESSION: Low lung volumes, but no focal pneumonia.
--- NOTE | 2016-04-10 15:30 | RADIOLOGY REPORT ---
EXAMINATION: XR KNEE, LEFT CLINICAL INFORMATION: Left knee pain COMPARISON: None TECHNIQUE: Four views of the left knee. FINDINGS: Osseous alignment is anatomic. No acute fracture is seen. There are moderate degenerative changes with tricompartmental joint space narrowing and osteophytosis. Chondrocalcinosis is also noted. A trace effusion is present. Vascular calcifications are noted. IMPRESSION: No evidence of fracture. Trace effusion. Moderate degenerative changes.
[2016-04-10 15:46] LABS: ABSOLUTE BASOPHIL COUNT 0 /CUMM (0.0-0.2); ABSOLUTE EOSINOPHIL COUNT 0.2 /CUMM (0.0-0.7); ABSOLUTE GRANULOCYTE CT 12.6 /CUMM (1.4-6.5); ABSOLUTE MONOCYTE COUNT 1.1 /CUMM (0.10-0.60); BASOPHIL % 0.2 % (0.0-2.0); EOSINOPHIL % 1.3 % (0-5); GRANULOCYTE % 74.1 % (42.2-75.2); HEMATOCRIT 31.8 % (37-47); MEAN CORPUSCULAR HGB CONC 32.1 G/DL (33.0-37.0); MEAN PLATELET VOLUME 7.2 FL (7.4-10.4); PLATELET COUNT 678 /CUMM (130-400); RBC DISTRIBUTION WIDTH 20.9 % (11.5-14.5); RED BLOOD CELL CT 4.08 /CUMM (4.20-5.40)
[2016-04-10 15:57] VITALS: BP 150/67
== END 2016-04-10 16:55 ==
LOC: ERH 13:53
PROVIDERS: Physician Assistant
DX: M25.562 Pain in left knee (principal); R53.1 Weakness; D72.829 Elevated white blood cell count, unspecified; L97.429 Non-pressure chronic ulcer of left heel and midfoot with unspecified severity
CPT/HCPCS: 73562-LT; 81001; 87086; 93005; 93010